=== PATIENT | male | born 1945 | race Caucasian/White ===

== ENCOUNTER → 2017-09-14 14:37 | Outpatient (POV) | payer MEDICARE, SELFPAY | DX: Z00.00 Encounter for general adult medical examination without abnormal findings (principal) ==

== ENCOUNTER → 2017-09-27 10:02 | Outpatient (CLI) | payer MEDICARE, SELFPAY ==
[2017-09-27 11:13] LABS: Alanine Aminotransferase 40 U/L (12-78); Albumin Level 3.8 gm/dL (3.4-5.0); Albumin/Globulin Ratio 1.1 (1.1-1.8); Alkaline Phosphatase 82 U/L (46-116); Anion Gap 12.5 mEq/L (5-15); Aspartate Amino Transferase 20 U/L (15-37); Bilirubin,Total 0.6 mg/dL (0.2-1.0); Blood Urea Nitrogen 15 mg/dL (7-18); Calcium 8.6 mg/dL (8.5-10.1); Carbon Dioxide 29 mmol/L (21.0-32.0); Chloride 105 mmol/L (98-107); Chol/HDL Ratio 3.3 (1-3.5); Cholesterol 200 mg/dL (140-200); Creatinine,Serum 0.92 mg/dL (0.70-1.30); Estimated Glomerular Filt Rate 81 ml/min (>60); GFR (African American) 98 ML/MIN (>60); Globulin 3.6 gm/dl (1.3-3.2); Glucose 117 mg/dL (74-106); HDL Cholesterol 61 mg/dL (27-67); LDL Cholesterol 124 mg/dL (0-130); Potassium 4.5 mmoL/L (3.5-5.1); Prostate Specific Ag Screen 4.8 ng/mL (0.0-4.0); Sodium 142 mmol/L (136-145); Thyroid Stimulating Hormone 0.84 uIU/ml (0.358-3.740); Total Protein,Serum 7.4 gm/dL (6.4-8.2); Triglycerides 73 mg/dL (30-200); VLDL Cholesterol 15 mg/dL (0-40)
[2017-09-27 11:17] LABS: Hemoglobin A1C 5.4 % (0.0-7.0)
[2017-09-28 12:26] LABS: Vitamin B12 1173 pg/mL (232-1245)
[2017-09-30 11:42] LABS: Vitamin D 25 Hydroxy 32.4 ng/mL (30.0-100.0)
== END ==
PROVIDERS: Visit Provider Internal Medicine Adolescent Medicine
DX: Z12.5 Encounter for screening for malignant neoplasm of prostate (principal); R97.20 Elevated prostate specific antigen [PSA]; E78.5 Hyperlipidemia, unspecified; G60.9 Hereditary and idiopathic neuropathy, unspecified; R73.01 Impaired fasting glucose
CPT/HCPCS: 36415; 80053; 80061; 82607; 82652; 83036; 84443; G0103

== ENCOUNTER → 2017-12-07 10:14 | Outpatient (CLI) | payer MEDICARE, SELFPAY ==
[2017-12-07 12:57] LABS: Alanine Aminotransferase 48 U/L (12-78); Albumin Level 4.1 gm/dL (3.4-5.0); Albumin/Globulin Ratio 1.1 (1.1-1.8); Alkaline Phosphatase 93 U/L (46-116); Aspartate Amino Transferase 23 U/L (15-37); Bilirubin,Total 0.8 mg/dL (0.2-1.0); Blood Urea Nitrogen 15 mg/dL (7-18); Calcium 8.7 mg/dL (8.5-10.1); Carbon Dioxide 29 mmol/L (21.0-32.0); Chloride 106 mmol/L (98-107); Cholesterol 147 mg/dL (140-200); Creatinine,Serum 0.86 mg/dL (0.70-1.30); Estimated Glomerular Filt Rate 87 ml/min (>60); GFR (African American) 106 ML/MIN (>60); Globulin 3.7 gm/dl (1.3-3.2); Glucose 107 mg/dL (74-106); HDL Cholesterol 75 mg/dL (27-67); LDL Cholesterol 62 mg/dL (0-130); Sodium 142 mmol/L (136-145); Total Protein,Serum 7.8 gm/dL (6.4-8.2); Triglycerides 51 mg/dL (30-200); VLDL Cholesterol 10 mg/dL (0-40)
== END ==
PROVIDERS: PCP Internal Medicine Adolescent Medicine; Visit Provider Internal Medicine Adolescent Medicine
DX: E78.5 Hyperlipidemia, unspecified (principal)
CPT/HCPCS: 36415; 80053; 80061

== ENCOUNTER → 2018-05-23 16:01 | Outpatient (POV) | payer MEDICARE, SELFPAY | PROVIDERS: Visit Provider Internal Medicine | DX: Z00.00 Encounter for general adult medical examination without abnormal findings (principal) ==

== ENCOUNTER → 2019-01-18 09:01 | Outpatient (CLI) | payer MEDICARE, SELFPAY ==
[2019-01-18 09:31] LABS: Basophils # 0.1 K/mm3 (0-0.2); Eosinophils # 0.4 K/mm3 (0.0-0.4); Hematocrit 44.1 % (42.0-52.0); Hemoglobin 14.6 g/dL (14.1-18.0); Lymphocytes # 2.7 K/mm3 (0.7-4.5); Lymphocytes % 47.3 % (10-50); Mean Corpuscular HGB Conc 33.2 g/dL (31.8-35.4); Mean Corpuscular Hemoglobin 31.8 pg (27.0-31.2); Mean Corpuscular Volume 95.9 fl (80-94); Mean Platelet Volume 7.2 fl (7.4-10.4); Monocytes # 0.4 K/mm3 (0.1-1.0); Monocytes % 7.6 % (1.7-9.3); Neutrophils # 2.2 K/mm3 (1.8-7.8); Platelet Count 278 K/mm3 (142-424); Red Cell Distribution Width 12.6 % (11.5-17.5); White Blood Count 5.7 K/mm3 (4.8-10.8)
[2019-01-18 11:47] LABS: Alanine Aminotransferase 31 U/L (12-78); Albumin/Globulin Ratio 1.1 (1.1-1.8); Alkaline Phosphatase 97 U/L (46-116); Anion Gap 16.6 mEq/L (5-15); Aspartate Amino Transferase 19 U/L (15-37); Bilirubin,Total 0.4 mg/dL (0.2-1.0); Blood Urea Nitrogen 12 mg/dL (7-18); Calcium 8.7 mg/dL (8.5-10.1); Carbon Dioxide 26 mmol/L (21.0-32.0); Chloride 106 mmol/L (98-107); Cholesterol 153 mg/dL (140-200); Creatinine,Serum 0.87 mg/dL (0.70-1.30); Estimated Glomerular Filt Rate 86 ml/min (>60); GFR (African American) 104 ML/MIN (>60); Globulin 3.7 gm/dl (1.3-3.2); Glucose 114 mg/dL (74-106); HDL Cholesterol 78 mg/dL (27-67); LDL Cholesterol 66 mg/dL (0-130); Potassium 4.6 mmoL/L (3.5-5.1); Prostate Specific Ag, Diagnost 4.46 ng/mL (0.0-4.0); Sodium 144 mmol/L (136-145); Total Protein,Serum 7.7 gm/dL (6.4-8.2); Triglycerides 45 mg/dL (30-200); VLDL Cholesterol 9 mg/dL (0-40)
--- NOTE | 2019-01-18 15:17 | CT_ITS ---
PROCEDURE: CT HEART W CALCIUM SCORE CLINICAL HISTORY: SCREENING COMPARISON: No exams were available for comparison TECHNIQUE: Axial images obtained with sagittal and coronal reformats. All CT scans at the facility use one or more dose reduction, viz: automated exposure control, ma/kV adjustment per patient size (including targeted exams where dose is matched to indication, i.e. head), or iterative reconstruction technique. FINDINGS: The coronary artery calcium score is 298 indicating moderate plaque burden with high cardiovascular disease risk. Incidental degenerative changes of the thoracic spine. There is a patchy area of increased density in the right lower lobe medially adjacent to prominent osteophyte may be due to an area of atelectasis infiltrate or fibrosis. IMPRESSION: 1. Moderate plaque burden with high cardiovascular disease risk. 2. Incidental findings as described above Dictated by: Sunny Lepe MD 01/20/2019 07:25 Electronically signed by Sunny Lepe MD in [facility] 01/20/2019 07:25
== END ==
PROVIDERS: Referring Provider Internal Medicine Cardiovascular Disease; Visit Provider Internal Medicine Adolescent Medicine
DX: Z13.6 Encounter for screening for cardiovascular disorders (principal); E78.5 Hyperlipidemia, unspecified; G20 Parkinson's disease; N40.1 Benign prostatic hyperplasia with lower urinary tract symptoms
CPT/HCPCS: 36415; 75571; 80053; 80061; 84153; 85025

== ENCOUNTER → 2019-01-22 14:11 | Outpatient (CLI) | payer MEDICARE, SELFPAY ==
--- NOTE | 2019-01-22 14:17 | MR_ITS ---
PROCEDURE: MR HEAD/BRAIN WO CON CLINICAL INDICATION: ANXIETY, PARKINSONS, TREMOR Tremor COMPARISON: No exams were available for comparison TECHNIQUE: Routine multiplanar multi echo sequences are performed without gadolinium enhancement. The FINDINGS: No midline shift, mass effect, intracranial hemorrhage, or hydrocephalus is evident. Scattered periventricular and subcortical T2 white matter hyperintensities are present consistent with ischemic gliotic change from microvascular disease. There is mild generalized atrophy. Slight increased T2 signal is present also in the serjio which may be due to skin katie gliotic change. No areas of restricted diffusion. The cerebellopontine angle, cerebellum, and brainstem are unremarkable. The pituitary, optic chiasm, corpus callosum, and craniocervical junction have an unremarkable appearance. No mastoid effusion or sinus air-fluid level. There is mild mucosal thickening of the left ethmoid sinus posteriorly. IMPRESSION: 1. No acute intracranial findings. 2. Atrophy with mild periventricular ischemic gliotic changes. Dictated by: Sunny Lepe MD 01/22/2019 16:37 Electronically signed by Sunny Lepe MD in [facility] 01/23/2019 12:20
== END ==
PROVIDERS: PCP Internal Medicine Adolescent Medicine; Visit Provider Psychiatry & Neurology Neurology
DX: F41.1 Generalized anxiety disorder (principal); F32.9 Major depressive disorder, single episode, unspecified; G20 Parkinson's disease; G25.0 Essential tremor
CPT/HCPCS: 70551

== ENCOUNTER → 2019-02-12 06:51 | Outpatient (CLI) | payer MEDICARE, SELFPAY ==
--- NOTE | 2019-02-12 | CA_ITS ---
APPROVED REPORT Exam: Pharmacologic Technologist: Halley Vargas Ht: 5 ft 11 in Wt: 180 lbs BSA: 2.02 m2 HR: 75 bpm BP: 160/81 mmHg Indications: Dyspnea, Abnormal CT calcium scoring test Medical History Medications: Lisinopril,,,,, Atorvastatin,,,,, Ranitidine,,,,, Citalopram,,,,, ClonAZEPAM,,,,, TAMSULOSIN,,,,, Mirtazapine,,,,, Levadopa,,,,, Stress Test Details Test: LEXISCAN HR Resting HR: 65 bpm Max Heart Rate (APMHR): 147 bpm Max HR Achieved: 99 bpm Target HR (85% APMHR): 124 bpm % of APMHR: 67 Recovery HR: 74 bpm BP Resting BP: 160.0/81.0 mmHg Max BP: 161.0/73.0 mmHg Recovery BP: 147.0/75.0 mmHg ECG Clinical Exercise duration: 04:00 min Highest Stage Achieved: Stress ECG Conclusion Resting ECG: Sinus rhythm - right bundle branch block Lexiscan portion completed. Symptoms: GI issue at peak infusion, resolved in recoviery. No chest pain or shortness of breath. Arrhythmias/Ectopy: Occasional PVC, occasional PAC. ST-T Changes: Less than 1.[address] depression Conclusion: Images to follow. Test Summary RECOVERY 05:00 . . 71 . 149/ 76 . . REST 01:48 . . 65 . 160/ 81 . . Stage 1 01:00 . . 94 . . . . Stage 2 01:00 . . 96 . 146/ 82 . . Stage 3 01:00 . . 96 . 154/ 82 . . Stage 4 01:00 . . 83 . 151/ 75 . Stop exercise at 04:00 RECOVERY 01:00 . . 81 . 148/ 74 . . RECOVERY 02:00 . . 75 . 148/ 74 . . RECOVERY 03:00 . . 83 . 161/ 73 . . RECOVERY 04:00 . . 76 . 149/ 76 . . RECOVERY 05:00 . . 71 . 149/ 76 . . RECOVERY 05:21 . . 74 . 147/ 75 . . Electronically signed by : Ivan Nieves, 02/12/2019 20:25:12
--- NOTE | 2019-02-12 06:53 | NM_ITS ---
APPROVED REPORT Exam: Nuclear Stress Test Indication: CAD, HTN, High cholesterol, Family history Patient Location: Outpatient Stress Tech: Halley Vargas NM Tech:Carol Zeng, ARRT, RT (R)(N) Ht: 5 ft 11 in Wt: 180 lbs HR: 75 bpm BP: 160/81 mmHg BSA: 2.02 m2 BMI: 25.1 History: CAD, HTN, High cholesterol, Family history Procedure: Patient received a 0.4 mg of intravenous Lexiscan, resting heart rate 75 bpm, resting blood pressure 160/81 mmHg, with Lexiscan maximum heart rate achived was 97 bpm which is Less than 85 % of the maximum predicted heart rate and blood pressure was 154/82 mmHg. With Lexiscan, patient denied any complaint of chest pain. Electrocardiogram Resting electrocardiogram showed sinus rhythm right bundle branch block, with Lexiscan there is less than 1.[address] segment depression noted from the baseline EKG. The EKG portion of the Lexiscan Myoview is nondiagnostic. Cardiac Stress and Resting SPECT Images: Cardiac Stress and Resting SPECT images were obtained using technetium 99m Myoview 30.3 mCi stress and 10.13 mCi at rest. Gated SPECT with analysis of segmental wall motion and calculation of the ejection fraction also done. Cardiac stress and resting SPECT images show a mild fixed defect in the inferior wall with normal contractility gated SPECT is likely secondary to soft tissue attenuation, no reversible ischemia seen. Computer derived ejection fraction is over 65% with no regional wall motion abnormality, right ventricle is mildly enlarged with normal contractility. Conclusion: 1. The EKG portion of the Lexiscan Myoview is nondiagnostic. 2. No scintigraphic evidence of reversible ischemia seen, a fixed defect in the inferior wall is likely secondary to soft tissue attenuation, computer derived ejection fraction is over 65% with no regional wall motion abnormality, right ventricle is mildly enlarged with normal contractility. Electronically signed by : Ivan Nieves, 02/12/2019 20:27:46
--- NOTE | 2019-02-12 07:19 | HMH.ITSHM ---
Current Home Medications as stated by this patient Tommie Xie or enrollment representative. []ATORVASTATIN CITALOPRAM CLONAZAPAM LISINOPRIL MIRTAZAPINE RANITIDINE LEVADOPA TAMSULOSIN
== END ==
PROVIDERS: PCP Internal Medicine Adolescent Medicine; Visit Provider Internal Medicine Adolescent Medicine
DX: R06.09 Other forms of dyspnea (principal); R93.1 Abnormal findings on diagnostic imaging of heart and coronary circulation
CPT/HCPCS: 78452; 93017; A9502; J2785

== ENCOUNTER → 2020-01-18 10:19 | Outpatient (CLI) | payer MEDICARE, SELFPAY ==
[2020-01-18 12:46] LABS: Alanine Aminotransferase 6 U/L (12-78); Albumin Level 4.8 g/dl (3.5-5.0); Albumin/Globulin Ratio 1.5 (1.1-1.8); Alkaline Phosphatase 85 U/L (38-126); Anion Gap 15.2 mEq/L (5-15); Aspartate Amino Transferase 30 U/L (17-59); Bilirubin,Total 0.5 mg/dl (0.2-1.3); Blood Urea Nitrogen 18 mg/dl (9-20); Calcium 9.6 mg/dl (8.4-10.2); Carbon Dioxide 28 mmol/L (22.0-30.0); Chloride 106 mmol/L (98-107); Chol/HDL Ratio 2.1 (1-3.5); Cholesterol 182 mg/dl (140-200); Estimated Glomerular Filt Rate 82 ml/min (>60); GFR (African American) 100 ML/MIN (>60); Globulin 3.2 g/dL (1.3-3.2); Glucose 114 mg/dl (74-100); HDL Cholesterol 85 mg/dl (40-60); Potassium 5.2 mmoL/L (3.5-5.1); Sodium 144 mmol/L (136-145); Triglycerides 55 mg/dl (30-150); VLDL Cholesterol 11 mg/dL (0-40)
[2020-01-18 12:58] LABS: Direct LDL Cholesterol 75.68 mg/dL (100-129)
[2020-01-18 13:19] LABS: Prostate Specific Ag Screen 3.5 ng/ml (0.0-4.0)
== END ==
PROVIDERS: Visit Provider Nurse Practitioner Family
DX: E78.5 Hyperlipidemia, unspecified (principal); N40.1 Benign prostatic hyperplasia with lower urinary tract symptoms; Z12.5 Encounter for screening for malignant neoplasm of prostate; Z68.23 Body mass index [BMI] 23.0-23.9, adult
CPT/HCPCS: 36415; 80053; 80061; G0103

== ENCOUNTER → 2020-03-01 10:59 | Outpatient (CLI) | payer MEDICARE, SELFPAY ==
[2020-03-01 12:44] LABS: Coronavirus 19 IgG Antibody Positive (Negative); Coronavirus 19 IgM Antibody Negative (Negative)
== END ==
PROVIDERS: Visit Provider Internal Medicine Gastroenterology
DX: Z01.818 Encounter for other preprocedural examination (principal); Z12.11 Encounter for screening for malignant neoplasm of colon; R19.7 Diarrhea, unspecified
CPT/HCPCS: 36415; 86328

== ENCOUNTER 2020-03-03 07:07 | Day surgery (SDC) | payer MEDICARE, SELFPAY ==
[2020-02-26 10:28] VITALS: BMI 24.4
[2020-03-03 07:21] VITALS: BP 141/81; PULSE 61; RESP 18; TEMP 36.3; O2SAT 98
[2020-03-03 08:04] VITALS: O2SAT 98
--- NOTE | 2020-03-03 08:05 | P.PCN_ITS ---
[facility] Procedure Note Procedure Note:: Colonoscopy Procedure Report: Colonoscopy Endoscopist: Bill Meyers II, MD Referring physician: Korina RAMIREZ Date of Procedure: March 03, 2020 Equipment: Olympus 180 variable stiffness pediatric colonoscope Sedation: MAC sedation Indication: Mr. Xie is a 74-year-old gentleman who is here for follow-up screening/surveillance colonoscopy. He did have a colonoscopy in 2013 and had a couple of adenomatous polyps (Dr. Jose L Chavez) removed. He reports no abdominal pain, weight loss, change in his bowel habits or rectal bleeding. He reports no family history of colon cancer. Procedure: Prior to the procedure, a history and physical exam was performed, and patient's medications and allergies were reviewed. The risks, benefits and alternatives of the sedation and procedure were discussed with the patient. All questions were answered and informed consent was obtained. The patient was brought to the procedure room. Patient identification and proposed procedure were verified by the physician and the nurse. The patient was placed in a left lateral decubitus position and the scope was passed under direct vision. Throughout the procedure, the patient's blood pressure, pulse, and oxygen saturations were monitored continuously. The colonoscopy was accomplished without difficulty. The patient tolerated the procedure well. Findings: On digital rectal examination there was normal rectal tone. There were no external hemorrhoids. The colonoscope was introduced through the anal canal to the rectum and advanced to the cecum. The ileocecal valve and appendiceal orifice were identified. The scope was advanced a short distance into the ileum which appeared grossly normal. The scope was then withdrawn into the colon. The cecum, ascending and transverse colon and mucosa were grossly normal. There were scattered diverticuli throughout the colon but more predominantly in the descending and sigmoid colon (LEFT colon). The rectum itself was normal. Upon retroflexion within the rectum there were grade 1-2 internal hemorrhoids. The preparation was excellent throughout with [place] Preparation Score of 9. The cecal time was 12 minutes. Impression: 1. Pandiverticulosis 2. Grade 1-2 internal hemorrhoids Plan: The patient will not require screening/surveillance colonoscopy again for 10 years by ACS guidelines. I would encourage fiber supplementation on a long-term daily maintenance basis.
--- NOTE | 2020-03-03 08:15 | P.PN_ITS ---
[facility] Anesthesia Checklist - Patient Identification Patient Identification: Arm Band - Structural Data Admitted From: Home Planned Operative Procedure/s: colonoscopy Consent for Planned Operative Procedure(s) Verified: Yes Verified Documents: Surgical Consent, History and Physical - NPO Status Verified Time NPO: 00:00 - Additional verifications Anesthesia Reactions: No - Airway Assessment C-Spine Mobility Assessed: Yes (mp2) TMJ Mobility Assessed: Yes Dentition: Good Dentition - Neurological Assessment Level of Consciousness: Awake, Alert - Anesthesia Plan Anesthesia Risk discussed: Yes Anesthesia Plan: Verified ASA Class: II Anesthesia Type: MAC [facility] History I have reviewed the patient's past medical history: Yes Medical History: Reports:: Cancer (skin), Hyperlipidemia, Hypertension Denies:: Diabetes Mellitus Type 1, Diabetes Mellitus Type 2, Internal Pacemaker, MRSA, Seizures *Have you ever received a pneumonia vaccine?: Yes *Have you received a flu vaccine this season?: Yes Anesthesia experience/problems:: nac Other Surgeries: Yes: Hernia Repair, Other. No: Pacemaker Amputation: No Fractures: Yes (L ankle ORIF - plate) - *Social History Last grade of school completed: Advanced degree Smoking Status: Never smoker Alcohol Intake: current Alcohol Intake Frequency:: 3 or more drinks per day Substance Use Type: denies use *Occupational Status:: retired Housing: house Household Members: spouse *Travel in the last 8 weeks: None Family Hx:: No significant family history
[2020-03-03 08:25] VITALS: BP 101/71; PULSE 59; RESP 12; TEMP 36.3; O2SAT 94
[2020-03-03 08:35] VITALS: BP 112/65; PULSE 55; RESP 12; O2SAT 95
[2020-03-03 08:45] VITALS: BP 119/75; PULSE 64; RESP 16; O2SAT 98
[2020-03-03 08:55] VITALS: BP 127/76; PULSE 55; RESP 16; TEMP 36.3; O2SAT 98
== END 2020-03-03 08:57 | disposition home or self-care (01) ==
LOC: OUTP 07:08
PROVIDERS: PCP Internal Medicine Adolescent Medicine; Visit Provider Internal Medicine Gastroenterology
PROC: 0DJD8ZZ Inspection of Lower Intestinal Tract, Via Natural or Artificial Opening Endoscopic (ICD-10-PCS; CPT 45378; principal; 2020-03-03 08:00)
DX: Z12.11 Encounter for screening for malignant neoplasm of colon (principal); K57.30 Diverticulosis of large intestine without perforation or abscess without bleeding; K64.0 First degree hemorrhoids; Z86.010 Personal history of colon polyps; I10 Essential (primary) hypertension; E78.5 Hyperlipidemia, unspecified; G47.33 Obstructive sleep apnea (adult) (pediatric); F41.9 Anxiety disorder, unspecified; F32.9 Major depressive disorder, single episode, unspecified
CPT/HCPCS: G0105

== ENCOUNTER → 2020-07-31 11:03 | Outpatient (CLI) | payer MEDICARE, SELFPAY ==
--- NOTE | 2020-07-31 11:08 | XR_ITS ---
PROCEDURE: XR KNEE LT 4V CLINICAL INDICATION: Left knee pain COMPARISON: CR [id number] [id number] OR 5 [id number] from 11/11/2015 FINDINGS: No fracture or dislocation. No lytic or blastic change. There is normal mineralization. There are mild osteoarthritic changes of the medial compartment and patellofemoral joint. Other findings:Nonspecific vascular calcifications. IMPRESSION: Mild Dictated by: Sunny Lepe MD 07/31/2020 14:56 Sunny Lepe MD in [place] 07/31/2020 14:56
== END ==
PROVIDERS: PCP Internal Medicine Adolescent Medicine; Visit Provider Orthopaedic Surgery
DX: M25.562 Pain in left knee (principal)
CPT/HCPCS: 73564

== ENCOUNTER → 2020-09-05 11:05 | Outpatient (CLI) | payer MEDICARE, SELFPAY ==
--- NOTE | 2020-09-05 11:09 | XR_ITS ---
PROCEDURE: XR HIP LT 2-3V W/PELVIS CLINICAL INDICATION: LT hip pain COMPARISON: No exams were available for comparison FINDINGS: There are mild mild to moderate osteoarthritic changes of the left hip. No fracture or dislocation. No lytic or blastic change. There is subchondral cyst in the acetabular roof laterally. AP view of the pelvis also shows osteoarthritic change of the right hip. IMPRESSION: [id number] osteoarthritic change of the left hip Dictated by: Sunny Lepe MD 09/05/2020 11:29 Sunny Lepe MD in [facility] 09/05/2020 11:29
== END ==
PROVIDERS: PCP Internal Medicine Adolescent Medicine; Visit Provider Orthopaedic Surgery
DX: M17.10 Unilateral primary osteoarthritis, unspecified knee (principal); M25.559 Pain in unspecified hip
CPT/HCPCS: 73502

== ENCOUNTER → 2020-09-25 13:29 | Outpatient (CLI) | payer MEDICARE, SELFPAY ==
--- NOTE | 2020-09-25 13:34 | IR_ITS ---
PROCEDURE: IR FLUORO GUIDED NEEDLE PLACE CLINICAL INDICATION: LT hip injection COMPARISON: No exams were available for comparison FINDINGS: Fluoroscopy time: 37 seconds. Four images are submitted of the left hip showing intra-articular injection from the lateral approach with the injection needle overlying the superior lateral aspect of the femoral head with contrast noted within the hip joint capsule. Minimal amount of contrast extravasation into the soft tissues IMPRESSION: Status post fluoroscopic guided intra-articular injection of the left hip Dictated by: Sunny Lepe MD 09/25/2020 16:04 Sunny Lepe MD in [place] 09/25/2020 16:04
--- NOTE | 2020-09-25 15:33 | HMH.PROC ---
[facility] Procedure Note Procedure Note:: Date of Procedure:09/25/2020 Pre-procedure diagnosis: Osteoarthritis, left hip Post-procedure diagnosis: Same Procedure: Intra-articular corticosteroid injection, left hip Performed by: Hemant Nichole MD Senior Mainframe Developer/s: none Anesthesia: local; 10 cc 1% lidocaine w/o epinephrine Estimated Blood Loss: none Procedure Note: Intra-articular left hip injection: The patient presented to the radiology department and changed into a gown. Consent was reviewed and signed by both myself and the patient.? All questions were answered. The patient was placed supine on the fluoroscopy table and the left hip exposed. The lateral hip and proximal thigh were prepped with multiple chlorhexidine sticks. Timeout was performed. Next, with the help of the wireless cellular technician, the fluoro machine was brought in over the patient?s hip and a picture taken to confirm adequate visualization of the joint. I donned a pair of sterile surgical gloves; the remainder of the procedure was performed in a sterile fashion. A spinal needle was held over the lateral aspect of the hip about the tip of the greater trochanter to approximate my desired entry point on the skin. Once this was established, a 25 G needle was used to infiltrate injection site and estimated needle track with total 10 cc 1% lidocaine w/o epinephrine. Once the injection site was anesthetized, a 22-gauge spinal needle was advanced through deeper tissue towards the hip joint.? Using fluoro, it was confirmed that the needle was advanced until the tip was in the hip joint. The stylus was removed from the spinal needle and 2cc of iodinated contrast solution was injected through the spinal needle. Fluoro was taken again, and the dye confirmed intra-capsular placement of the spinal needle, indicating a successful intraarticular injection. The syringe with contrast was removed, keeping the spinal needle in place, and a combination of 40 mg of Kenalog with 4 cc 1% lidocaine w/o epinephrine was injected through the needle into the hip joint. A final fluoro picture was taken, confirming successful intraarticular injection. The spinal needle was removed from the hip. Sterile dressings were applied over the needle puncture site. Patient tolerated the procedure well and there were no immediate complications. Patient reported good pain relief within a few minutes after the the injection.? Specimens: none Condition/Disposition: good / home Complications: none
== END ==
PROVIDERS: PCP Internal Medicine Adolescent Medicine; Visit Provider Orthopaedic Surgery
DX: M16.12 Unilateral primary osteoarthritis, left hip (principal)
CPT/HCPCS: 20610; 77002; Q9967

== ENCOUNTER → 2021-01-12 09:22 | Outpatient (CLI) | payer MEDICARE, SELFPAY ==
[2021-01-12 09:51] LABS: Basophils # 0.1 K/mm3 (0-0.2); Basophils % 0.8 % (0.1-2.0); Eosinophils # 0.4 K/mm3 (0.0-0.4); Eosinophils % 5.1 % (0.1-12.0); Hematocrit 45.5 % (42.0-52.0); Hemoglobin 14.7 g/dL (14.1-18.0); Lymphocytes # 2.7 K/mm3 (0.7-4.5); Lymphocytes % 38.6 % (10-50); Mean Corpuscular HGB Conc 32.4 g/dL (31.8-35.4); Mean Corpuscular Hemoglobin 31.5 pg (27.0-31.2); Mean Corpuscular Volume 97.3 fl (80-94); Mean Platelet Volume 6.8 fl (7.4-10.4); Monocytes # 0.4 K/mm3 (0.1-1.0); Monocytes % 5.8 % (1.7-9.3); Neutrophils # 3.4 K/mm3 (1.8-7.8); Neutrophils % 49.6 % (37.0-80.0); Platelet Count 292 K/mm3 (142-424); Red Blood Count 4.68 M/mm3 (4.60-6.20); Red Cell Distribution Width 12.2 % (11.5-17.5); White Blood Count 6.9 K/mm3 (4.8-10.8)
[2021-01-12 10:46] LABS: Alanine Aminotransferase 23 U/L (12-78); Albumin Level 4.5 g/dl (3.5-5.0); Albumin/Globulin Ratio 1.6 (1.1-1.8); Alkaline Phosphatase 77 U/L (38-126); Anion Gap 13.1 mEq/L (5-15); Aspartate Amino Transferase 26 U/L (17-59); Bilirubin,Total 0.5 mg/dl (0.2-1.3); Blood Urea Nitrogen 14 mg/dl (9-20); Calcium 9.4 mg/dl (8.4-10.2); Carbon Dioxide 29 mmol/L (22.0-30.0); Chloride 104 mmol/L (98-107); Chol/HDL Ratio 2.2 (1-3.5); Cholesterol 145 mg/dl (140-200); Estimated Glomerular Filt Rate 94 ml/min (>60); GFR (African American) 114 ML/MIN (>60); Globulin 2.9 g/dL (1.3-3.2); Glucose 108 mg/dl (74-100); HDL Cholesterol 66 mg/dl (40-60); Potassium 5.1 mmoL/L (3.5-5.1); Sodium 141 mmol/L (136-145); Total Protein,Serum 7.4 g/dl (6.3-8.2); Triglycerides 54 mg/dl (30-150); VLDL Cholesterol 11 mg/dL (0-40)
[2021-01-12 10:58] LABS: Direct LDL Cholesterol 55.23 mg/dL (100-129)
[2021-01-12 11:18] LABS: Prostate Specific Ag Screen 3.6 ng/ml (0.0-4.0)
== END ==
PROVIDERS: Visit Provider Internal Medicine Adolescent Medicine
DX: G20 Parkinson's disease (principal); E78.5 Hyperlipidemia, unspecified; N40.1 Benign prostatic hyperplasia with lower urinary tract symptoms; Z12.5 Encounter for screening for malignant neoplasm of prostate
CPT/HCPCS: 36415; 80053; 80061; 85025; G0103

== ENCOUNTER → 2021-03-19 09:56 | Outpatient (CLI) | payer MEDICARE, SELFPAY | PROVIDERS: PCP Radiology Diagnostic Radiology; Visit Provider Nurse Practitioner | DX: Z20.822 Contact with and (suspected) exposure to COVID-19 (principal) | CPT/HCPCS: C9803; U0003; U0005 ==

== ENCOUNTER 2021-05-27 10:00 | Outpatient (RCR) | payer MEDICARE, SELFPAY | END 2021-05-27 10:05 | disposition home or self-care (01) | LOC: PT 10:00 | PROVIDERS: PCP Internal Medicine Adolescent Medicine; Visit Provider Orthopaedic Surgery | DX: M25.562 Pain in left knee (principal); Z96.652 Presence of left artificial knee joint | CPT/HCPCS: 97010; 97014; 97016; 97110; 97140; 97163; 97164; 97530; G0283 ==

== ENCOUNTER → 2021-11-20 08:46 | Outpatient (CLI) | payer MEDICARE, SELFPAY ==
[2021-11-20 09:21] LABS: Basophils # 0.2 K/mm3 (0-0.2); Basophils % 1.8 % (0.1-2.0); Eosinophils # 0.3 K/mm3 (0.0-0.4); Eosinophils % 2.5 % (0.1-12.0); Hematocrit 43.5 % (42.0-52.0); Hemoglobin 13.5 g/dL (14.1-18.0); Lymphocytes # 2.6 K/mm3 (0.7-4.5); Lymphocytes % 24.9 % (10-50); Mean Corpuscular Hemoglobin 30.8 pg (27.0-31.2); Mean Corpuscular Volume 99.3 fl (80-94); Mean Platelet Volume 7.5 fl (7.4-10.4); Monocytes # 0.6 K/mm3 (0.1-1.0); Monocytes % 5.9 % (1.7-9.3); Neutrophils # 6.8 K/mm3 (1.8-7.8); Neutrophils % 64.9 % (37.0-80.0); Platelet Count 307 K/mm3 (142-424); Red Blood Count 4.38 M/mm3 (4.60-6.20); Red Cell Distribution Width 13.2 % (11.5-17.5); White Blood Count 10.4 K/mm3 (4.8-10.8)
[2021-11-20 11:14] LABS: Alanine Aminotransferase 15 U/L (12-78); Albumin Level 4.2 g/dl (3.5-5.0); Albumin/Globulin Ratio 1.4 (1.1-1.8); Alkaline Phosphatase 107 U/L (38-126); Anion Gap 11.9 mEq/L (5-15); Aspartate Amino Transferase 21 U/L (17-59); Bilirubin,Total 0.9 mg/dl (0.2-1.3); Blood Urea Nitrogen 11 mg/dl (9-20); Calcium 9.1 mg/dl (8.4-10.2); Carbon Dioxide 26 mmol/L (22.0-30.0); Chloride 105 mmol/L (98-107); Chol/HDL Ratio 2.1 (1-3.5); Cholesterol 131 mg/dl (140-200); Estimated Glomerular Filt Rate 82 ml/min (>60); GFR (African American) 99 ML/MIN (>60); Glucose 109 mg/dl (74-100); HDL Cholesterol 61 mg/dl (40-60); Potassium 4.9 mmoL/L (3.5-5.1); Sodium 138 mmol/L (136-145); Total Protein,Serum 7.2 g/dl (6.3-8.2); Triglycerides 69 mg/dl (30-150); VLDL Cholesterol 14 mg/dL (0-40)
[2021-11-20 11:44] LABS: Prostate Specific Ag Screen 3.9 ng/ml (0.0-4.0)
[2021-11-26 08:59] LABS: Direct LDL Cholesterol 50 mg/dL (100-129)
== END ==
PROVIDERS: PCP Internal Medicine Adolescent Medicine; Visit Provider Internal Medicine Adolescent Medicine
DX: G20 Parkinson's disease (principal); E78.5 Hyperlipidemia, unspecified; N40.1 Benign prostatic hyperplasia with lower urinary tract symptoms; Z12.5 Encounter for screening for malignant neoplasm of prostate
CPT/HCPCS: 36415; 80053; 80061; 85025; G0103

== ENCOUNTER → 2022-03-08 11:50 | Outpatient (CLI) | payer MEDICARE, SELFPAY ==
--- NOTE | 2022-03-08 11:56 | XR_ITS ---
FINAL REPORT CLINICAL HISTORY: PLEURITIC CHEST PAIN left side, x 1 week FINDINGS: 2 views of the chest were obtained . The heart is normal in size. The mediastinum is within normal limits. There are left mid lung opacities worrisome for pneumonia. However, mass not entirely excluded. There is no pneumothorax. Osseous structures are unremarkable. IMPRESSION: Left mid lung opacities worrisome for pneumonia. Mass not excluded. Recommend follow-up x-ray or CT for further evaluation. Reviewed, Interpreted and Dictated by Jean-Claude Marshall III, MD Transcribed by Maddie Lazaro Authenticated and . [facility]
== END ==
PROVIDERS: PCP Internal Medicine Adolescent Medicine; Visit Provider Internal Medicine Adolescent Medicine
DX: R07.81 Pleurodynia (principal)
CPT/HCPCS: 71046

== ENCOUNTER 2024-02-17 10:00 | Outpatient (RCR) | payer MEDICARE, SELFPAY ==
--- NOTE | 2023-11-22 10:35 | HMH.PTOPEV ---
PT Outpatient Evaluation Rehab PT Outpatient Evaluation Start: 11/22/23 10:24 Freq: Status: Active Protocol: Document 11/22/23 10:25 KIMANI (Rec: 11/22/23 10:35 KIMANI [id number]) E-signed By Antonio Powers, PT Outpatient Therapy Subjective History Subjective History Pt reports insidious onset mechanical LBP beginning ~6 months ago. Pt reports 'it correlates to when I started gardening this time.' Pt reports right and left sided intermittent LBP around PSIS's , exacerbated w/lifting bending, improved w/rest. Pt reports previous imaging studies have revealed 'some arthritic changes in low back. ' PMH: Parkinson's New diagnosis of cancer in past 12 No months? Chief Complaint Pain Symptom Type Ache,Dull Symptoms Relieved By Rest/Positioning Symptoms Aggravated By Bending/Stooping,Physical Activity,Lifting Prior Functional Limitations Lifting,Housework,Recreation Activity,Bending/Stooping Current Functional Limitations Lifting,Housework,Recreation Activity,Bending/Stooping Symptom Description Intermittent Level of pain today (0-10) 1 Pain scale - at its best (0-10) 0 Pain scale - at its worst (0-10) 7 Lumbopelvic Eval Posture Thoracic Spine Posture Standing Position Neutral Lumbar Spine Posture Standing Position Flattened Assistive device Assistive Devices None / NA Gait Observation General Gait Pattern Observation Shuffling Step Palapation tenderness bilateral lumbar spinal tenderness Yes: 2/4 paraspinal tenderness Yes: 2-3/4 buttock tenderness Yes: 1-2/4 Lumbar/Sacral Palpation Findings Tenderness,Muscle Guarding Accessory Movement L-spine Vertebrae Accessory Movements [employer] [place] that Elicit Symptoms L3 bilateral L4 bilateral Range of Motion Lumbar Spine Active Flexion Range of 0-65 Motion (degrees) Lumbar Spine Active Extension Range of 0-20 Motion (degrees) Left Lumbar Spine Lateral Flexion Active 0-15 Range of Motion (degrees) Right Lumbar Spine Lateral Flexion 0-15 Active Range of Motion (degrees) Lumbar Spine ROM Limitations Soft Tissue Tightness,Pain Manual Muscle Test Bilateral Knee Extension Strength Grade 5 Normal Knee Flexion Strength Grade 5 Normal Hip Flexion Strength Grade 5 Normal Hip Abduction Strength Grade 4 Good Hip Adduction Strength Grade 5 Normal Hip External Rotation Strength Grade 4 Good Hip Internal Rotation Strength Grade 4 Good Extensor Hallucis Longus Strength Grade 5 Normal Ankle Dorsiflexion Strength Grade 5 Normal Gastronemius/Soleus Strength Grade 5 Normal Special Tests Hip Rob Test Negative Left,Negative Right Hip Piriformis Test Negative Left,Negative Right Sciatic Nerve Tension Test Negative Left,Negative Right Oswestry Index Section 1 Pain Intensity The pain comes and goes and is severe Section 2 Personal Care (Washing,Dresing) my way of washing or dressing even though it causes some pain Section 3 Lifting I can lift heavy weights, but it gives me extra pain Section 4 Walking I have some pain when walking but it does not increase with distance Section 5 Sitting I can sit in any chair for as long as I like Section 6 Standing I cannot stand more than 1/2 hour without increasing pain Section 7 Sleeping I get no pain in bed Section 8 Social Life My social life is normal but increases the degree of pain Section 9 Traveling I get some pain when traveling , but none of my usual forms of travel m Section 10 Changing Degreee of Pain My pain is neither getting better or worse Score and Risk Level Oswestry Sc 15 Oswestry Risk Level Moderate Disability Outpatient Therapy Assessment Impairments Problems/Impairmments Palpation Tenderness,Impaired Range of Motion,Impaired Strength,Impaired Lifting, Impaired Household Care, Impaired Bending,Impaired Recreational Activities, Subjective C/O Pain,Impaired Self Care/Self Management Prognosis Rehab Potential Good Clinical Impression Consistent with Diagnosis Yes Short Term Goals Number of Weeks 4 Decreased Palpation Tenderness Yes: 1-2/4 lumbar mm Increase Range of Motion Yes: 75% OF WFL LUMBAR AROM Increase Strength Yes: 4+/5 B/L LE'S Restore Ability to Lift Objects to Waist Yes: 20# Level Improve Ability For Household Care Yes: 30MIN Return to Recreational Activities Yes: 30MIN GARDENING Decrease Subjective C/O Pain Yes: 3-4/10 W/ABOVE ACTIVITIES Patient to be 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 Number of Weeks 6-8 Decreased Palpation Tenderness Yes: 0-1/4 LUMBAR MM Increase Range of Motion Yes: WFL LUMBAR AROM Increase Strength Yes: WFL B/L LE'S (5/5) Restore Ability to Lift Objects to Waist Yes: 30# Level Improve Ability For Household Care Yes: 60MIN Return to Recreational Activities Yes: 60MIN GARDENING Improve Oswestry Score Yes: 6-8 Decrease Subjective C/O Pain Yes: 0-2/10 W/ABOVE ACTIVITIES Patient to be Ind w/ Advanced HEP Yes Outpatient Therapy Plan of Care Treatment Plan May Include Therapeutic Exercise Including Home Yes Exercise Program Manual Therapy Techniques Yes Neuromuscular Re-education Yes Therapeutic Activities to Return to Yes Previous Functional/Work Level Gait Training Yes ADL/Self Care Education Yes Mechanical Traction Yes Dry Needling Yes Thermal Modalities Yes Electrical Stimulation Yes Ultrasound/Phonophoresis Yes Orthotics/Bracing/Splinting Yes Eval/Re-Eval Yes Frequency Times per week 2-3 Duration Number of Weeks 6-8 Addendums This patient is a candidate for social No or vocational rehab? Patient/Guardian verbally acknowledges Yes understanding of treatment program and consents to further treatment? Patient/Guardian verbally acknowledges Yes understanding of diagnosis, prognosis and goals for treatment? Eval Complexity PT Charges 39673 - Moderate Complexity Shoulder/Elbow Eval Shoulder Objective Measurements Elbow Objective Measurements PHYSICIAN CERTIFICATION: I certify the specified therapy services for Tommie Xie are required, authorized, and reviewed every 30 days.
--- NOTE | 2023-12-20 11:47 | HMH.RHREAS ---
Rehab Reassessment Rehab OP Re-assessment Start: 11/22/23 10:24 Freq: Status: Active Protocol: Document 12/20/23 10:57 KIMANI (Rec: 12/20/23 11:46 KIMANI [id number]) E-signed By Antonio Powers, PT Rehab Re-assessment Subjective Subjective Pt reports 3/10 LBP on VAS over the last couple day, 'I definitely feel better than I did from when we started.' Objective Objective Notes AROM: LUMBAR AROM FLX 0-75, EXT 0-25, B/L SB 0-20 MMT: B/L HIP FLX 4-4+/5, B/L HIP ER,IR 4-4+/5, B/L HIP ABD 4-4+/5 TTP: B/L LUMBAR PARASPINAL MM 0-03/31 Assessment Progress Assessment Progressing as Expected Assessment Notes Significant improvements in strength, TTP, and ROM Patient goals met STG'S 10/02 LTG'S 08/03 Goals Not Met STG'S 04/04, LTG'S 07/04 Plan Plan Pt to continue w/skilled P.T. to make further improvements in ROM, strength, and TTP to allow for optimal function Frequency of Therapy 1-2x/wk Duration of therapy 3-5wks Time and Billing Re-Eval Time 12 Re-Eval Billing Units 1 PHYSICIAN CERTIFICATION: I certify the specified therapy services for Tommie Xie are required, authorized, and reviewed every 30 days.
--- NOTE | 2024-01-19 11:30 | HMH.RHREAS ---
Rehab Reassessment Rehab OP Re-assessment Start: 11/22/23 10:24 Freq: Status: Active Protocol: Document 01/19/24 11:22 KIMANI (Rec: 01/19/24 11:29 [email or web address] [id number]) E-signed By Antonio Powers, PT Rehab Re-assessment Subjective Subjective Pt reports slight to moderate improvement in LBP since last reassessment despite 2 week absence from skilled P.T. d/t travel. Pt reports 3-4/10 LBP on VAS this am. Objective Objective Notes AROM: LUMBAR AROM FLX 0-80, EXT 0-25, B/L SB 0-20 MMT: B/L HIP FLX 4-4+/5, B/L HIP ER,IR 4-4+/5, B/L HIP ABD 4-4+/5 TTP: B/L LUMBAR PARASPINAL MM 0-03/31 Assessment Progress Assessment Slower Than Expected Assessment Notes Pt has experienced a slight plateau of objective measures since last reassessment, however, still possesses LTG and some STG functional goals that are still determined to be attainable w/improved frequency of skilled P.T. Patient goals met STG'S 10/02 LTG'S 08/03 Goals Not Met STG'S 04/04, LTG'S 07/04 Plan Plan Pt to continue w/skilled P.T. to make further improvements in ROM, strength, and TTP to allow for optimal function Frequency of Therapy 1-2x/wk Duration of therapy 3-5WKS Time and Billing Re-Eval Time 12 Re-Eval Billing Units 0 PHYSICIAN CERTIFICATION: I certify the specified therapy services for Tommie Xie are required, authorized, and reviewed every 30 days.
== END 2024-02-17 23:59 | disposition home or self-care (01) ==
LOC: PT 10:00
PROVIDERS: Visit Provider Internal Medicine Adolescent Medicine
DX: M54.50 Low back pain, unspecified (principal)
CPT/HCPCS: 97010; 97014; 97110; 97163; 97164; G0283

== ENCOUNTER 2024-05-16 15:27 | Outpatient (CLI) | payer MEDICARE, SELFPAY ==
--- NOTE | 2024-05-16 15:32 | XR_ITS ---
PROCEDURE INFORMATION: Exam: XR Lumbosacral Spine Exam date and time: 05/16/2024 3:50 PM Age: 78 years old Clinical indication: Other: RT leg pain TECHNIQUE: Imaging protocol: Radiologic exam of the lumbosacral spine. Views: 4 or 5 views. COMPARISON: CR XR LUMBAR SPINE MIN 4V 05/16/2024 3:50 PM FINDINGS: Bones/joints: Mild lumbar dextrocurvature. No pars interarticularis defects. Mild disc space narrowing at L3-L4. Mild disc space narrowing at L4-L5. Moderate disc space narrowing at L5-S1. Facet joints have moderate degenerative narrowing and sclerosis. Straightening of the lumbar spine. No acutely displaced fractures. No joint dislocation. Soft tissues: Unremarkable. IMPRESSION: 1. No acute skeletal pathology. 2. Dfsc-hh-fceagnrq degenerative changes.
--- NOTE | 2024-05-16 15:32 | XR_ITS ---
PROCEDURE INFORMATION: Exam: XR Bilateral Sacroiliac Joints Exam date and time: 05/16/2024 3:50 PM Age: 78 years old Clinical indication: Pain; Other: RT leg; Additional info: Pain in rt-leg TECHNIQUE: Imaging protocol: XR bilateral XR of the sacroiliac joints. Views: 3 or more views. COMPARISON: CR XR HIP RT 2-3V W/PELVIS 05/16/2024 3:50 PM FINDINGS: Bones/joints: Jnsm-go-fmsehpqs bilateral hip osteoarthritis. Mild osteoarthritis in the bilateral sacroiliac joints. No sequela of sacroiliitis. No acute fracture. Soft tissues: Normal. IMPRESSION: 1. Hwqu-co-fjxpjhrx bilateral hip osteoarthritis. 2. Mild osteoarthritis in the bilateral sacroiliac joints. No sequela of sacroiliitis.
--- NOTE | 2024-05-16 15:32 | XR_ITS ---
PROCEDURE INFORMATION: Exam: XR Right Hip Exam date and time: 05/16/2024 3:50 PM Age: 78 years old Clinical indication: Pain; Other: RT leg; Additional info: Pain RT hip TECHNIQUE: Imaging protocol: Radiologic exam of the right hip. Views: 2 or 3 views hip with pelvis when performed. COMPARISON: CR XR HIP RT 2-3V W/PELVIS 05/16/2024 3:50 PM FINDINGS: Bones/joints: Zrel-so-vktyqqbj bilateral hip osteoarthritis. Cam type morphology in the bilateral femoral heads. No acute fracture or dislocation. Soft tissues: Unremarkable. IMPRESSION: 1. Kqud-ik-nfyoyzft bilateral hip osteoarthritis. 2. No acute fracture or dislocation.
== END 2024-05-16 23:59 | disposition home or self-care (01) ==
LOC: RAD 15:29
PROVIDERS: PCP Internal Medicine Adolescent Medicine; Visit Provider Internal Medicine Adolescent Medicine
DX: M79.604 Pain in right leg (principal); M54.9 Dorsalgia, unspecified
CPT/HCPCS: 72110; 72202; 73502

== ENCOUNTER 2024-08-06 15:09 | Outpatient (CLI) | payer MEDICARE, SELFPAY ==
--- NOTE | 2024-08-06 15:12 | MR_ITS ---
PROCEDURE INFORMATION: Exam: MR Lumbar Spine Without Contrast Exam date and time: 08/06/2024 4:20 PM Age: 78 years old Clinical indication: Low back pain; Lower back pain with right leg pain. No known injury; Additional info: Lf knee and ankle plate*spinal stenosis TECHNIQUE: Imaging protocol: Magnetic resonance imaging of the lumbar spine without contrast. COMPARISON: CR XR LUMBAR SPINE MIN 4V 05/16/2024 3:50 PM FINDINGS: Bones/joints: Mild angulation of the lumbar spine is visualized. The lumbar vertebral bodies are normal in height. Mild retrolisthesis of L5 on S1. Within the S1 vertebral body, there is a 1.1 cm T1 hyperintense hemangioma. Spinal cord: The distal end of the conus medullaris ends at T12-L1, normal in position. Multilevel findings: Degenerative changes are noted diffusely within the lumbar spine, with a decrease in the T2 signal intensity of the discs, as well as disc bulge/osteophyte complexes. L1-L2: Disc bulging is visualized. There is no significant spinal canal stenosis or neural foraminal narrowing. L2-L3: Disc bulging is visualized, without significant spinal canal stenosis. There is no significant neural foraminal narrowing bilaterally. L3-L4: Disc bulging is visualized, with a small left-sided disc protrusion causing flattening of the left ventral thecal sac, without significant spinal canal stenosis. Narrowing of the left lateral recess is seen. Mild right neural foraminal narrowing is identified. There is no significant narrowing of the left neural foramen. L4-L5: Minimal effusions are noted within the facet joints. A broad-based disc bulge is seen causing flattening of ventral thecal sac without significant spinal canal stenosis. There is narrowing of the right lateral recess. Moderate to severe right neural foraminal narrowing identified, with a foraminal protrusion. There is no significant narrowing of the left neural foramen. L5-S1: Mild edema is seen within the bone marrow adjacent to the endplates, which is likely degenerative. A decrease in disc height is seen posteriorly. Bilateral facet arthropathy. The disc bulging with central protrusion are visualized causing a mild impression on the ventral thecal sac, without significant spinal canal stenosis. Moderate left and severe right neural foraminal narrowing identified. Soft tissues: No significant paraspinal swelling. IMPRESSION: 1. Degenerative changes are noted diffusely within the lumbar spine, as described above. 2. No significant spinal canal stenosis at any lumbar level. Disc protrusions are noted at L3-L4 and L5-S1. 3. Neural foraminal narrowing from L3-L4 through L5-S1. 4. S1 vertebral body hemangioma. 5. Mild retrolisthesis of L5 on S1. 6. Additional findings described above.
== END 2024-08-06 23:59 | disposition home or self-care (01) ==
LOC: RAD 15:09
PROVIDERS: PCP Internal Medicine Adolescent Medicine; Visit Provider Anesthesiology Pain Medicine
DX: M51.27 Other intervertebral disc displacement, lumbosacral region (principal); M48.061 Spinal stenosis, lumbar region without neurogenic claudication
CPT/HCPCS: 72148

== ENCOUNTER 2024-11-22 14:26 | Outpatient (CLI) | payer MEDICARE, SELFPAY ==
--- OUTSIDE RECORDS SUMMARY | 2024-10-15 10:30 | XMS_ITS | Encounter Summary ---
Author Organization [facility] Address [address] [place] [address] Care Team Providers Care Mold Preparer Name Role Phone Sanchez Agosto MD Primary Care Provider [phone] Dago Miller MD Unavailable Reason for Referral * Other Medical (Routine) - Closed Specialty Diagnoses / Procedures Referred By Contac t Referred To Contact Pain Medicine Diagnoses Spondylosis of lumbosacral region without myelopathy or radiculopathy Procedures Facet MBB - Lumbar Luciano Medina MD [address] [address] Phone: tel: fax: [facility] Interventional Pain Medicine [address] [place] [phone] Phone: tel: fax: Referral ID Status Reason Start Date Expiration Date Visits Re quested Visits Authorized [id number] Closed 10/15/2024 04/16/2026 1 1 Reason for Visit * Reason Comments Injections * Other Medical (Routine) - Closed Specialty Diagnoses / Procedures Referred By Contac t Referred To Contact Pain Medicine Diagnoses Spondylosis of lumbosacral region without myelopathy or radiculopathy Procedures Facet MBB - Lumbar Yessenia Hale, [employer] [address] [address] Phone: tel: fax: [facility] Interventional Pain Medicine [address] [place] [address] Phone: tel: fax: Referral ID Status Reason Start Date Expiration Date Visits Re quested Visits Authorized [id number] Closed 09/12/2024 03/14/2026 1 1 Encounter Details Date Type Department Care Team (Late st Contact Info) Description 10/15/2024 10:30 AM EDT Procedure Visit [facility] Interventional Pain Medicine [address] [place] [address] Luciano Medina MD [address] [facility] [address] [place] [address] Spondylosis of lumbosacral region without myelopathy or radiculopathy Social History Tobacco Use Types Packs/Day Years Used Date Smoking Tobacco: Former Cigarettes 0 09/24/1999 - 2002 Smokeless Tobacco: Never Tobacco Cessation:Counseling Given: Not Answered Alcohol Use Standard Drinks/Week Comments Yes 3 (1 standard drink = 0.6 oz pure alcohol) Alcoholic Drinks/day: Consumes alcohol occasionally PHQ-2 Answer Date Recorded Patient Health Questionnaire-2 Score 0 09/12/2024 Sex and Gender Information Value Date Recorded Sex Assigned at Not on file Legal Sex Male 7:48 PM EDT Gender Identity Not on file Sexual Orientation Not on file documented as of this encounter Last Filed Vital Signs Vital Sign Reading Time Taken Comments Blood Pressure 125/76 10/15/2024 11:05 AM EDT Pulse 73 10/15/2024 11:05 AM EDT Temperature 36.4 C (97.5 F) 10/15/2024 10:27 AM EDT Respiratory Rate 18 10/15/2024 11:05 AM EDT Oxygen Saturation 99% 10/15/2024 11:05 AM EDT Inhaled Oxygen Concentration - - Weight 79.4 kg (175 lb) 10/15/2024 10:27 AM EDT Height 180.3 cm (5' 11 ) 10/15/2024 10:27 AM EDT Body Mass Index 24.41 10/15/2024 10:27 AM EDT documented in this encounter Miscellaneous Notes * Clinician Note - Sherly Colvin RN - 10/15/2024 10:30 AM EDTAssociated Order(s): Interventional Pain Nurse Procedure Protocol Interventional Pain Nurse Procedure Protocol Documentation: Indications: Documentation supporting primary procedure completed by : Luciano Medina MD See the provider procedure note for performed procedure details and findings. Pre-Procedure Checklist: Currently taking anticoagulant(s)?: no Vulcanizer present?: yes Additional Pre-Procedure Comments: Right lum. FMBB Sunburn on left foot, healing according to pt. Time out called @ 1056 by emerald Procedure details: Procedure start time:: 10/15/2024 10:59 AM Procedure end time:: 10/15/2024 11:03 AM Guidance used (if applicable): fluoro Total amount of contrast dye (mGy): 2.05 Fluoro time: 19.1 seconds Moderate conscious sedation used?: no Post-procedure details: Orientation at discharge?: Normal to time, normal to place, normal to person, normal to situation and completely oriented Mood and Affect normal?: yes Discharged to: home Mode of exit: Walked (@ 1132 am) Attendance: Constant attendance by certified staff until patient recovered Recovery: Patient returned to pre-procedure baseline Estimated blood loss (see I/O flowsheets): no Specimens recovered: None Patient is stable for discharge or admission: yes Procedure completion: Tolerated well, no immediate complications * Progress Notes - Luciano Medina MD - 10/15/2024 10:30 AM EDTAssociated Order(s): Facet MBB - Lumbar Pre-Procedure Diagnose(s): Spondylosis of lumbosacral region without myelopathy or radiculopathy Post-Procedure Diagnose(s): Spondylosis of lumbosacral region without myelopathy or radiculopathy Patient ID: Tommie Xie is a 79 y.o. male. Encounter Diagnosis Name Primary? Spondylosis of lumbosacral region without myelopathy or radiculopathy Facet MBB - Lumbar Performed by: Luciano Medina MD Authorized by: Geoffrey, Yessenia R, [employer] Procedure(s): A right L4-5 and L5-S1 Lumbar medial branch block- diagnostic #1 # Levels: 2 Pre-procedure: This patient was seen earlier for a comprehensive evaluation of their painful condition. After discussing treatment options, the patient elected to proceed with a Facet MBB - Lumbar . Procedure(s): Right L4/L5 and L5/S1 Facet Medial Branch Blocks #1 Anesthesia Type: Local Complications: none Follow-up Plan: Procedure or clinic follow up based on pain relief Procedure: This patient was seen earlier for a comprehensive evaluation of their painful condition.After discussing treatment options, the patient elected to proceed with a lumbar medial branch block. Written, informed consent was obtained before the start of the procedure. The patient's history of present illness, past medical history (including current medications and allergies), and physical examination were reviewed with the patient immediately before the procedure, and it was confirmed directly with the patient that they desired to proceed. The patient ambulated to the operating room and was placed in the prone position with pressure points padded. A time out was performed, confirming the patient's identification, allergy status, the side(s) of the procedure, and the procedure(s) to be performed. All operators were wearing hats, masksand sterile gloves. The patient underwent ChloraPrep skin prep followed by sterile drape. At each level mentioned above, the needle insertion site for the medial branch blocks was identified by fluoroscopy and marked. The patient received: 1% lidocaine subcutaneously. Under fluoroscopic guidance using a coaxial approach, a 22 g 3.5 inch was advanced until the needle tip contacted the transverse process immediately lateral to the pedicle at each level. Appropriate positioning of each needle tip was confirmed by fluoroscopy in the lateral view. 0.5 mL of contrast dye was injected and did not reveal any intravascular of intrathecal uptake. It confirmed appropriate spread along the medial branch. 0.5 mL of 2% lidocaine was injected through each needle. The stylette was replaced in each needle, then each needle was withdrawn. Sterile bandages was applied over the puncture sites. Following completion of the procedure, the patient was transported to the PACU, then was later discharged in stable condition. Assessment/Plan #Chronic Axial Low Back Pain #Lumbar Spondylosis #Facetogenic pain Pre-Injection Numerical Rating Scale Pain Score: 8/10 Post-Injection Numerical Rating Scale Pain Score: 2/10 Patient Reports 90 % pain relief following the procedure performed as mentioned above. Functional improvement after medial branch block: improvement in bending, twisting, extension, standing, walking Post-Procedure Owestry Disability Index (JOANNE) No questionnaires on file. documented in this encounter Plan of Treatment Upcoming Encounters Date Type Department Care Team (Late st Contact Info) Description 01/11/2025 2:40 PM EDT Office Visit [facility] Interventional Pain Medicine [address] [facility] [place] [address] Luciano Medina MD [address] [facility] [address] [place] [address] 01/30/2025 12:40 PM EST Office Visit [facility] [address] [place] [address] Dago Miller MD [address] [place] [address] documented as of this encounter Procedures Procedure Name Priority Date/Time Associated Diagnosis Comments IVP NURSE PROCEDURE PROTOCOL Routine 10/15/2024 10:30 AM EDT NV INJ DX/THER AGNT PARAVERT FACET JOINT,IMG GUIDE,LUMBAR/SAC, 2ND LEVEL Routine 10/15/2024 10:30 AM EDT Spondylosis of lumbosacral region without myelopathy or radiculopathy NV INJ DX/THER AGNT PARAVERT FACET JOINT,IMG GUIDE,LUMBAR/SAC, 1ST LEVEL Routine 10/15/2024 10:30 AM EDT Spondylosis of lumbosacral region without myelopathy or radiculopathy documented in this encounter Results * Facet MBB - Lumbar (10/29/2024 10:30 AM EDT) Narrative Luciano Medina MD - 10/29/2024 10:30 AM EDT Luciano Medina MD 10/29/2024 1:52 PM Facet MBB - Lumbar Performed by: Luciano Medina MD Authorized by: Luciano Medina MD Procedure: Moderate conscious sedation used?: no Guidance used (if applicable): fluoro Location: Number of levels injected in procedure: 2 Luciano Medina MD IN CLINIC/BEDSIDE ORDERABLES Final Result * Interventional Pain Nurse Procedure Protocol (10/15/2024 10:30 AM EDT) Narrative Radha Santizo RN - 10/15/2024 10:30 AM EDT Radha Santizo RN 10/15/2024 11:39 AM Interventional Pain Nurse Procedure Protocol Documentation: Indications: Documentation supporting primary procedure completed by : Luciano Medina MD See the provider procedure note for performed procedure details and findings. Pre-Procedure Checklist: Currently taking anticoagulant(s)?: no Vulcanizer present?: yes Additional Pre-Procedure Comments: Right lum. FMBB Sunburn on left foot, healing according to pt. Time out called @ 1056 by emerald Procedure details: Procedure start time:: 10/15/2024 10:59 AM Procedure end time:: 10/15/2024 11:03 AM Guidance used (if applicable): fluoro Total amount of contrast dye (mGy): 2.05 Fluoro time: 19.1 seconds Moderate conscious sedation used?: no Post-procedure details: Orientation at discharge?: Normal to time, normal to place, normal to person, normal to situation and completely oriented Mood and Affect normal?: yes Discharged to: home Mode of exit: Walked (@ 1132 am) Attendance: Constant attendance by certified staff until patient recovered Recovery: Patient returned to pre-procedure baseline Estimated blood loss (see I/O flowsheets): no Specimens recovered: None Patient is stable for discharge or admission: yes Procedure completion: Tolerated well, no immediate complications us Luciano Medina MD IN CLINIC/BEDSIDE ORDERABLES Final Result * NV INJ DX/THER AGNT PARAVERT FACET JOINT,IMG GUIDE,LUMBAR/SAC, 1ST LEVEL, NV INJ DX/THER AGNT PARAVERT FACET JOINT,IMG GUIDE,LUMBAR/SAC, 2ND LEVEL (10/15/2024 10:30 AM EDT) Narrative Luciano Medina MD - 10/15/2024 10:30 AM EDT Luciano Medina MD 10/15/2024 11:39 AM Facet MBB - Lumbar Performed by: Luciano Medina MD Authorized by: Yessenia Hale APRN Procedure(s): A right L4-5 and L5-S1 Lumbar medial branch block- diagnostic #1 # Levels: 2 Pre-procedure: This patient was seen earlier for a comprehensive evaluation of their painful condition. After discussing treatment options, the patient elected to proceed with a Facet MBB - Lumbar . 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 documented in this encounter Administered Medications Inactive Administered Medications - up to 3 most recent administrations Medication Order MAR Action Action Date Dose Rate Site bupivacaine PF (Marcaine) 0.25 % injection 25 mg 25 mg (10 mL), Injection, Once, 1 dose, On Tue10/15/24 at 1200, RoutineIndications:Spondylosis of lumbosacral region without myelopathy or radiculopathy Given by Other 10/15/2024 11:00 AM EDT 25 mg lidocaine (Xylocaine) 1 % injection 30 mL 30 mL, Injection, Once, 1 dose, On Tue10/15/24 at 1200, RoutineIndications:Spondylosis of lumbosacral region without myelopathy or radiculopathy Given by Other 10/15/2024 11:00 AM EDT 30 mL sodium bicarbonate 8.4 % injection 50 mEq 50 mEq, Subcutaneous, Once, 1 dose, On Tue10/15/24 at 1200, RoutineIndications:Spondylosis of lumbosacral region without myelopathy or radiculopathy Given by Other 10/15/2024 11:01 AM EDT 50 mEq Other documented in this encounter Additional Health Concerns Assessment Noted Time A fall risk assessment has been complete d for the patient 10/15/2024 10:27 AM EDT A Body Mass Index follow-up plan has been documented for the patient 10/15/2024 11:39 AM EDT documented as of this encounter Care Teams Mold Preparer Relationship Specialty Start Date End Date Sanchez Agosto MD [address] [place] [address] PCP - General 08/08/20 Dago Miller MD [address] [place] [address] Consulting Physician Neurology 09/24/20 documented as of this encounter
--- OUTSIDE RECORDS SUMMARY | 2024-10-29 10:30 | XMS_ITS | Encounter Summary ---
Author Organization [facility] Address [address] [place] [address] Care Team Providers Care Charge Account Identification Clerk Name Role Phone Sanchez Agosto MD Primary Care Provider [phone] Dago Miller MD Unavailable Reason for Referral * Other Medical (Routine) - Closed Specialty Diagnoses / Procedures Referred By Contac t Referred To Contact Pain Medicine Diagnoses Spondylosis of lumbosacral region without myelopathy or radiculopathy Procedures RFA - Lumbar / Sacral Luciano Medina MD [address] [place] [address] Phone: tel: fax: [facility] Interventional Pain Medicine [address] [place] [address] Phone: tel: fax: Referral ID Status Reason Start Date Expiration Date Visits Re quested Visits Authorized [id number] Closed 10/29/2024 04/30/2026 1 1 Reason for Visit * Reason Comments Injections * Other Medical (Routine) - Closed Specialty Diagnoses / Procedures Referred By Contac t Referred To Contact Pain Medicine Diagnoses Spondylosis of lumbosacral region without myelopathy or radiculopathy Procedures Facet MBB - Lumbar Luciano Medina MD [address] [address] Phone: tel: fax: [facility] Interventional Pain Medicine [address] [place] [address] Phone: tel: fax: Referral ID Status Reason Start Date Expiration Date Visits Re quested Visits Authorized [id number] Closed 10/15/2024 04/16/2026 1 1 Encounter Details Date Type Department Care Team (Late st Contact Info) Description 10/29/2024 10:30 AM EDT Procedure Visit [facility] Interventional Pain Medicine [address] [place] [address] Luciano Medina MD [address] [facility] [address] [place] [address] Spondylosis of lumbosacral region without [...] Sign Reading Time Taken Comments Blood Pressure 116/70 10/29/2024 10:36 AM EDT Pulse 77 10/29/2024 10:36 AM EDT Temperature 36.3 C (97.3 F) 10/29/2024 10:20 AM EDT Respiratory Rate 18 10/29/2024 10:36 AM EDT Oxygen Saturation 95% 10/29/2024 10:36 AM EDT Inhaled Oxygen Concentration - - Weight 79.4 kg (175 lb) 10/29/2024 10:20 AM EDT Height 180.3 cm (5' 11 ) 10/29/2024 10:20 AM EDT Body Mass Index 24.41 10/29/2024 10:20 AM EDT documented in this encounter Miscellaneous Notes * Clinician Note - Eliana Powell RN - 10/29/2024 10:30 AM EDTAssociated Order(s): Interventional Pain Nurse Procedure Protocol Interventional Pain Nurse Procedure Protocol Documentation: Indications: Documentation supporting primary procedure completed by : Eliana Powell RN See the provider procedure note for performed procedure details and findings. Pre-Procedure Checklist: Currently taking anticoagulant(s)?: no Loss Prevention Consultant present?: yes Additional Pre-Procedure Comments: Right Lumbar MBB Time out called @ 1030 by emerald Procedure details: Procedure start time:: 10/29/2024 10:33 AM Procedure end time:: 10/29/2024 10:35 AM Guidance used (if applicable): fluoro Total amount of contrast dye (mGy): 1.19 Fluoro time: 9 seconds Moderate conscious sedation used?: no Post-procedure details: Orientation at discharge?: Normal to time, normal to place, normal to person, normal to situation and completely oriented Mood and Affect normal?: yes Discharged to: home Mode of exit: Walked (to cat driver in hallway @10:51 AM) Attendance: Constant attendance by certified staff until patient recovered Recovery: Patient returned to pre-procedure baseline Estimated blood loss (see I/O flowsheets): no Specimens recovered: None Patient is stable for discharge or admission: yes Procedure completion: Tolerated well, no immediate complications * Progress Notes - Luciano Medina MD - 10/29/2024 10:30 AM EDTAssociated Order(s): Facet MBB - [...] Number of levels injected in procedure: 2 Patient seen and evaluated prior to their procedure.There is nothing in the patient's overall condition that would affect the planned course of the patient's treatment today that requires additional interventions to reduce risk to the patient. Procedure(s): Right L4/L5 and L5/S1 Facet Medial Branch Blocks #2 Anesthesia Type: Local Complications: none Follow-up Plan: [...] 8/10 Post-Injection Numerical Rating Scale Pain Score: 0/10 Patient Reports 100 % pain relief following the procedure performed as mentioned above. Functional improvement after medial branch block: improvement in bending, twisting, extension, standing, walking Will order and proceed with facet medial branch radiofrequency ablation at the same mentioned levels and laterality as above performed medial branch blocks under fluoroscopy Post-Procedure Owestry Disability Index (JOANNE) No questionnaires on file. documented in this encounter Plan of Treatment Upcoming Encounters Date Type Department Care Team (Late st Contact Info) Description 01/11/2025 2:40 PM EDT Office Visit [facility] Interventional Pain Medicine [address] [place] [address] Luciano Medina MD [address] [place] [address] 01/30/2025 12:40 PM EST Office Visit [facility] [address] [place] [address] Dago Miller MD [address] [place] [address] documented as of this encounter Procedures Procedure Name Priority Date/Time Associated Diagnosis Comments IVP NURSE PROCEDURE PROTOCOL Routine 10/29/2024 10:30 AM EDT FACET MBB - LUMBAR Routine 10/29/2024 10 :30 AM EDT Spondylosis of lumbosacral region without myelopathy or radiculopathy documented in this encounter Results * RFA - Lumbar / Sacral (11/20/2024 9:00 AM EDT) Narrative Luciano Medina MD - 11/20/2024 9:00 AM EDT Luciano Medina MD 11/20/2024 9:40 AM RFA - Lumbar / Sacral Performed by: Rosalio Rudolph DO Authorized by: Luciano Medina MD us Luciano Medina MD IN CLINIC/BEDSIDE ORDERABLES Final Result * Interventional Pain Nurse Procedure Protocol (10/29/2024 10:30 AM EDT) Narrative Sherly Colvin RN - 10/29/2024 10:30 AM EDT Sherly Colvin RN 10/29/2024 1:52 PM Interventional Pain Nurse Procedure Protocol Documentation: Indications: Documentation supporting primary procedure completed by : Eliana Powell RN See the provider procedure note for performed procedure details and findings. Pre-Procedure Checklist: Currently taking anticoagulant(s)?: no Loss Prevention Consultant present?: yes Additional Pre-Procedure Comments: Right Lumbar MBB Time out called @ 1030 by emerald Procedure details: Procedure start time:: 10/29/2024 10:33 AM Procedure end time:: 10/29/2024 10:35 AM Guidance used (if applicable): fluoro Total amount of contrast dye (mGy): 1.19 Fluoro time: 9 seconds Moderate conscious sedation used?: no Post-procedure details: Orientation at discharge?: Normal to time, normal to place, normal to person, normal to situation and completely oriented Mood and Affect normal?: yes Discharged to: home Mode of exit: Walked (to cat driver in hallway @10:51 AM) Attendance: Constant attendance by certified staff until patient recovered Recovery: Patient returned to pre-procedure baseline Estimated blood loss (see I/O flowsheets): no Specimens recovered: None Patient is stable for discharge or admission: yes Procedure completion: Tolerated well, no immediate complications us Luciano Medina MD IN CLINIC/BEDSIDE ORDERABLES Final Result * Facet MBB - Lumbar (10/29/2024 10:30 AM EDT) Narrative Luciano Medina MD - 10/29/2024 10:30 AM EDT Luciano Medina MD 10/29/2024 1:52 PM Facet MBB - Lumbar Performed by: Luciano Medina MD Authorized by: Luciano Medina MD Procedure: Moderate conscious sedation used?: no Guidance used (if applicable): fluoro Location: Number of levels injected in procedure: 2 us Luciano Medina MD IN CLINIC/BEDSIDE ORDERABLES Final Result documented in this encounter Visit [...] (10 mL), Injection, Once, 1 dose, On Tue10/29/24 at 1130, RoutineIndications:Spondylosis of lumbosacral region without myelopathy or radiculopathy Given by Other 10/29/2024 10:33 AM EDT 25 mg lidocaine (Xylocaine) 1 % injection 30 mL 30 mL, Injection, Once, 1 dose, On Tue10/29/24 at 1130, RoutineIndications:Spondylosis of lumbosacral region without myelopathy or radiculopathy Given by Other 10/29/2024 10:33 AM EDT 30 mL sodium bicarbonate 8.4 % injection 50 mEq 50 mEq, Subcutaneous, Once, 1 dose, On Tue10/29/24 at 1130, RoutineIndications:Spondylosis of lumbosacral region without myelopathy or radiculopathy Given by Other 10/29/2024 10:33 AM EDT 50 mEq Other documented in this encounter Additional Health Concerns Assessment Noted Time A fall risk assessment has been complete d for the patient 10/29/2024 10:19 AM EDT A Body Mass Index follow-up plan has been documented for the patient 10/29/2024 1:52 PM EDT documented as of this encounter Care Teams Charge Account Identification Clerk Relationship Specialty Start Date End Date Sanchez Agosto MD [address] [place] [address] PCP - General 08/08/20 Dago Miller MD [address] [place] [address] Consulting Physician Neurology 09/24/20 documented as of this encounter
--- OUTSIDE RECORDS SUMMARY | 2024-11-20 09:00 | XMS_ITS | Encounter Summary ---
Author Organization Healthcare Address [address] [place] [address] Care Team Providers Care Molecular Modeler Name Role Phone Sanchez Agosto MD Primary Care Provider [phone] Dago Miller MD Unavailable Reason for Visit * Reason Comments Injections * Other Medical (Routine) - Closed Specialty Diagnoses / Procedures Referred By Contac t Referred To Contact Pain Medicine Diagnoses Spondylosis of lumbosacral region without myelopathy or radiculopathy Procedures RFA - Lumbar / Sacral Luciano Medina MD [address] [address] Phone: tel: fax: [facility] Interventional Pain Medicine [address] [place] [address] Phone: tel: fax: Referral ID Status Reason Start Date Expiration Date Visits Re quested Visits Authorized [id number] Closed 10/29/2024 04/30/2026 1 1 Encounter Details Date Type Department Care Team (Late st Contact Info) Description 11/20/2024 9:00 AM EDT Procedure Visit [facility] Interventional Pain Medicine [address] [place] [address] Luciano Medina MD [address] [place] [address] Spondylosis of lumbosacral region without myelopathy or [...] Sign Reading Time Taken Comments Blood Pressure 105/61 11/20/2024 9:25 AM EDT Pulse 62 11/20/2024 9:25 AM EDT Temperature 35.8 C (96.5 F) 11/20/2024 8:29 AM EDT Respiratory Rate 16 11/20/2024 9:25 AM EDT Oxygen Saturation 93% 11/20/2024 9:25 AM EDT Inhaled Oxygen Concentration - - Weight 79.4 kg (175 lb) 11/20/2024 8:29 AM EDT Height 180.3 cm (5' 11 ) 11/20/2024 8:29 AM EDT Body Mass Index 24.41 11/20/2024 8:29 AM EDT documented in this encounter Miscellaneous Notes * Clinician Note - Eliana Powell RN - 11/20/2024 9:00 AM EDTAssociated Order(s): Interventional Pain Nurse Procedure Protocol Interventional Pain Nurse Procedure Protocol Documentation: Indications: Documentation supporting primary procedure completed by : Luciano Medina MD See the provider procedure note for performed procedure details and findings. Pre-Procedure Checklist: Currently taking anticoagulant(s)?: no Operating Systems Specialist present?: yes Additional Pre-Procedure Comments: Right Lumb RFA A timeout was called immediately prior to the procedure, in accordance with [employer] policy @ 0856 Procedure details: Procedure start time:: 11/20/2024 8:59 AM Procedure end time:: 11/20/2024 9:08 AM Guidance used (if applicable): fluoro Total amount of contrast dye (mGy): 5.03 Fluoro time: 30.1 seconds Moderate conscious sedation used?: no Post-procedure details: Orientation at discharge?: Normal to time, normal to place, normal to person, normal to situation and completely oriented Mood and Affect normal?: yes Discharged to: home Mode of exit: Walked (walked to [facility] @ 0930) Attendance: Constant attendance by certified staff until patient recovered Recovery: Patient returned to pre-procedure baseline Estimated blood loss (see I/O flowsheets): no Specimens recovered: None Patient is stable for discharge or admission: yes Procedure completion: Tolerated well, no immediate complications * Progress Notes - Rosalio Rudolph DO - 11/20/2024 9:00 AM EDTAssociated Order(s): RFA - Lumbar / Sacral Pre-Procedure Diagnose(s): Spondylosis of lumbosacral region without myelopathy or radiculopathy Post-Procedure Diagnose(s): Spondylosis of lumbosacral region without myelopathy or radiculopathy Patient ID: Tommie Xie is a 79 y.o. male. Encounter Diagnosis Name Primary? Spondylosis of lumbosacral region without myelopathy or radiculopathy RFA - Lumbar / Sacral Performed by: Rosalio Rudolph DO Authorized by: Luciano Medina MD Patient seen and evaluated prior to their procedure.There is nothing in the patient's overall condition that would affect the planned course of the patient's treatment today that requires additional interventions to reduce risk to the patient. Procedure(s): Right L4/L5 and L5/S1 lumbar medial branch radiofrequency ablation Anesthesia Type: Local Complications: none Follow-up Plan: Clinic follow up as scheduled Procedure: This patient was seen earlier for a comprehensive evaluation of their painful condition.After discussing treatment options, the patient elected to proceed with a lumbar medial branch ablation. Written, informed consent was obtained before the start of the procedure. The patient's history of present illness, past medical history (including current medications and allergies), and physical examination were reviewed with the patient immediately before the procedure, and it was confirmeddirectly with the patient that they desired to [...] ChloraPrep skin prep followed by sterile drape. The needle insertion site for each medial branch radiofrequency ablation site, as mentioned above, was identified by fluoroscopy and marked. The patient received: 2% lidocaine subcutaneously. Under fluoroscopic guidance using a coaxial approach, 18 g 3.5 inch radiofrequency cannula was advanced until the needle tip contacted the transverse process immediately lateral to the pedicle at each level.At the sacral ala (if included), the needle was advanced under fluoroscopic guidance using a coaxial approach until the needle came into contact with the sacral ala. Appropriate positioning of each needle tip was confirmed by fluoroscopy in the lateral view. Nerve testing was then performed at each level. Motor stimulation was then performed at 2 Hz with Vof 1.5 at each site. At no time was a radicular pattern of stimulation noted. No motor stimulation of the leg was noted and confirmed verbally with the patient. Then each cannula was injected with 1 mL of 2% lidocaine. After approximately 60 seconds, radiofrequency ablation was then performed at 80degrees C for 90 seconds. The needles were then rotated 180 degrees and slightly withdrawn confirmed on a lateral view. Radiofrequency ablation was then performed at 80 degrees C for 90 seconds. The stylettes were then replaced at the needles removed. Sterile bandages were applied over the puncturesites. Following completion of the procedure, the patient was transported to the PACU, then was later discharged in stable condition. Cosigned by Luciano Medina MD at 11/20/2024 9:40 AM EDT Associated attestation - Luciano Medina MD - 11/20/2024 9:40 AM EDT I was present for the entirety of the procedure(s). documented in this encounter Plan of Treatment Upcoming Encounters Date Type Department Care Team (Late st Contact Info) Description 01/11/2025 2:40 PM EDT Office Visit [facility] Interventional Pain Medicine [address] [address] Luciano Medina MD [address] [place] [address] 01/30/2025 12:40 PM EST Office Visit [facility] [address] [place] [address] Dago Miller MD [address] [place] [address] documented as of this encounter Procedures Procedure Name Priority Date/Time Associated Diagnosis Comments IVP NURSE PROCEDURE PROTOCOL Routine 11/20/2024 9:00 AM EDT PBPROC Routine 11/20/2024 9:00 AM EDT Spondylosis of lumbosacral region without myelopathy or radiculopathy documented in this encounter Results * Interventional Pain Nurse Procedure Protocol (11/20/2024 9:00 AM EDT) Narrative Eliana Powell, RN - 11/20/2024 9:00 AM EDT Eliana Powell RN 11/20/2024 9:41 AM Interventional Pain Nurse Procedure Protocol Documentation: Indications: Documentation supporting primary procedure completed by : Luciano Medina MD See the provider procedure note for performed procedure details and findings. Pre-Procedure Checklist: Currently taking anticoagulant(s)?: no Operating Systems Specialist present?: yes Additional Pre-Procedure Comments: Right Lumb RFA A timeout was called immediately prior to the procedure, in accordance with [employer] policy @ 0856 Procedure details: Procedure start time:: 11/20/2024 8:59 AM Procedure end time:: 11/20/2024 9:08 AM Guidance used (if applicable): fluoro Total amount of contrast dye (mGy): 5.03 Fluoro time: 30.1 seconds Moderate conscious sedation used?: no Post-procedure details: Orientation at discharge?: Normal to time, normal to place, normal to person, normal to situation and completely oriented Mood and Affect normal?: yes Discharged to: home Mode of exit: Walked (walked to lobby @ 0930) Attendance: Constant attendance by certified staff until patient recovered Recovery: Patient returned to pre-procedure baseline Estimated blood loss (see I/O flowsheets): no Specimens recovered: None Patient is stable for discharge or admission: yes Procedure completion: Tolerated well, no immediate complications us Luciano Medina MD IN CLINIC/BEDSIDE ORDERABLES Final Result * RFA - Lumbar / Sacral (11/20/2024 [...] (10 mL), Injection, Once, 1 dose, On Tue11/20/24 at 0945, RoutineIndications:Spondylosis of lumbosacral region without myelopathy or radiculopathy Given by Other 11/20/2024 8:57 AM EDT 25 mg lidocaine PF (Xylocaine) 1 % injection 300 mg 300 mg (30 mL), Injection, Once, 1 dose, On Tue11/20/24 at 0945, RoutineIndications:Spondylosis of lumbosacral region without myelopathy or radiculopathy Given by Other 11/20/2024 8:57 AM EDT 300 mg sodium bicarbonate 8.4 % injection 50 mEq 50 mEq, Intradermal, Once, 1 dose, On Tue11/20/24 at 0945, RoutineIndications:Spondylosis of lumbosacral region without myelopathy or radiculopathy Given by Other 11/20/2024 8:57 AM EDT 50 mEq documented in this encounter Additional Health Concerns Assessment Noted Time A fall risk assessment has been complete d for the patient 11/20/2024 8:29 AM EDT A Body Mass Index follow-up plan has been documented for the patient 11/20/2024 9:41 AM EDT documented as of this encounter Care Teams Molecular Modeler Relationship Specialty Start Date End Date Sanchez Agosto MD [address] [place] [address] PCP - General 08/08/20 Dago Miller MD [address] [place] [address] Consulting Physician Neurology 09/24/20 documented as of this encounter
--- OUTSIDE RECORDS SUMMARY | 2024-11-22 14:30 | XMS_ITS | Clinical Summary ---
Author Organization [facility] Address [address] [place] [address] Care Team Providers Care Orthopedics Teacher Name Role Phone Sanchez Agosto MD Primary Care Provider [phone] Source Comments This information has been disclosed to you from confidential records protectedfrom disclosure by state law. You shall make no further disclosure of thisinformation without the specific, written, and informed release of theindividual to whom it pertains, or as otherwise permitted by law. A generalauthorization for the release of medical or other information is not sufficientfor the purposes of the release of HIV test results or diagnoses. [id number] Allergies No known active allergies Medications atorvastatin (LIPITOR) 40 MG tabletIndications:P rimary osteoarthritis of left knee TAKE 1 TABLET AT BEDTIME. 9 Active citalopram (CELEXA) 20 MG tabletIndications:P rimary osteoarthritis of left knee Take by mouth. 1 Active clonazePAM (KLONOPIN) 0.5 MG tabletIndications:P rimary osteoarthritis of left knee Take 1/2 tablet in the AM and 1/2 in the PM 9 Active lisinopriL (PRINIVIL) 10 MG tabletIndications:P rimary osteoarthritis of left knee Take 1 tablet daily 9 Active mirtazapine (REMERON) 30 MG tabletIndications:P rimary osteoarthritis of left knee TAKE 1 TABLET AT BEDTIME. 9 Active tamsulosin (FLOMAX) 0.4 mg CapIndications:Prim roque osteoarthritis of left knee TAKE 1 CAPSULE Bedtime 0 Active carbidopa-levodopa (SINEMET) 25-100 mg per tabletIndications:P rimary osteoarthritis of left knee TAKE ONE TABLET BY MOUTH FOUR TIMES DAILY 1 Active calcium carbonate (TUMS) 200 mg calcium (500 mg) chewable tabletIndications:P rimary osteoarthritis of left knee 9 Active glucosamine-chondro itin 500-400 mg tabletIndications:P rimary osteoarthritis of left knee Take 1 tablet by mouth 3 times a day. Active b complex vitamins capsuleIndications: Primary osteoarthritis of left knee Take 1 capsule by mouth daily. Active ibuprofen (MOTRIN) 400 MG tabletIndications:P rimary osteoarthritis of left knee Take 400 mg by mouth every 6 hours as needed for Pain. Active gabapentin (NEURONTIN) 300 MG capsule Take 1 capsule (300 mg total) by mouth 3 times a day. 90 capsule 02/04/2021 5:29 PM EST 1 Active senna (SENNA) 8.6 mg tablet Take 1 tablet by mouth daily. 30 tablet 1 Active Active Problems Problem Noted Date Diagnosed Date Status post total left knee replacement 08/28/19 22 S/P total knee replacement using cement, left Essential hypertension 01/21/2021 Hyperlipidemia 01/21/2021 BIRD (obstructive sleep apnea) 01/21/2021 Parkinson's disease 01/21/2021 Depression 01/21/2021 Anxiety 01/21/2021 Primary osteoarthritis of left knee 12/29/2020 Family History Medical History Relation Comments Anesthesia problems Neg Hx Coronary artery disease Neg Hx Stroke Neg Hx Social History Tobacco Use Types Packs/Day Years Used Date Smoking Tobacco: Former Cigarettes Q uit: 1994 Smokeless Tobacco: Never Comments:socially Alcohol Use Standard Drinks/Week Comments Yes 12 (1 standard drink = 0.6 oz pu re alcohol) PHQ-2 Answer Date Recorded PHQ-2 Total Score 2 12/29/2020 Sex and Gender Information Value Date Recorded Sex Assigned at Not on file Legal Sex Male 10:37 AM EDT Gender Identity Not on file Sexual Orientation Not on file Last Filed Vital Signs Vital Sign Reading Time Taken Comments Blood Pressure 120/66 02/04/2021 3:55 PM EST Pulse 72 02/04/2021 3:55 PM EST Temperature 36.2 C (97.2 F) 02/04/2021 12:03 PM EST Respiratory Rate 20 02/04/2021 3:02 PM EST Oxygen Saturation 99% 02/04/2021 3:13 PM EST Inhaled Oxygen Concentration 99% 02/04/2021 3 :13 PM EST Weight 81.6 kg (180 lb) 08/27/2021 10:41 AM EDT Height 182.9 cm (6') 08/27/2021 10:41 AM EDT Body Mass Index 24.41 08/27/2021 10:41 AM EDT Plan of Treatment Health Maintenance Due Date Last Done Comments Alcohol Misuse Screening 10/15/1963 Immunization: DTaP/Tdap/Td ( 1 - Tdap) 05/31/1996 05/30/1996 Immunization: Pneumococcal ( 2 of 2 - PCV) 09/06/2017 09/06/2016, 03/28/2013 Immunization: Zoster (2 of 2) 01/20/2018 11/25/2017 Immunization: RSV (Adult) (1 - 1-dose 75+ series) 2020 Depression Screening 12/29/2021 12/29/2020 Immunization: COVID-19 ( season) 2023 06/24/2021, 12/03/2020, 05/05/2020, Additional history exists Immunization: Influenza (MyC soliz) (#1) 2024 01/05/2021, 01/10/2020, 01/15/2019, Additional history exists Medical Devices Implanted Type Area Printing Table Worker Device Identifier Shelf Expiration Date Model / Serial / Lot Cement Bone Versabond Ab Pmma Gentamicin 40 Gm 1 Dose Medium Viscosity Sterile - [id number] Implanted:Qty: 2 on 02/04/2021 by Yaron Menjivar MD at [facility] Bone Left: Knee [employer] 11/25/2025 [id number] / / [id number] Baseplate Tib 5 Kn Lt Cmnt M Tpr Legion Ti Npor - [id number] Implanted:Qty: 1 on 02/04/2021 by Yaron Menjivar MD at [facility] Main Orthopedic Left: Knee [employer] 11/11/2030 [id number] / / [id number] Baseplate Tib 5 Kn Lt Cmnt M Tpr Legion Ti Npor - [id number] Implanted:Qty: 1 on 02/04/2021 by Yaron Menjivar MD at [facility] Main Orthopedic Left: Knee [employer] 11/11/2030 [id number] / / [id number] Component Ptlr 32mm Rsrfc Gns2 Kn - [id number] Implanted:Qty: 1 on 02/04/2021 by Yaron Menjivar MD at [facility] Main Patella Left: Knee [employer] 09/15/2030 [id number] / / [id number] Component Femoral Rosetta Ii Oxinium 6 Knee Left Cruciate Retain - [id number] Implanted:Qty: 1 on 02/04/2021 by Yaron Menjivar MD at [facility] Main Total Joint Left: Knee [employer] 03/04/2030 [id number] / / [id number] Insert Artc 5-6 9mm Kn Crcte Rtn Hi Flxn Xlpe Legion - [id number] Implanted:Qty: 1 on 02/04/2021 by Yaron Menjivar MD at [facility] Main Total Joint Left: Knee [employer] 07/09/2028 [id number] / / [id number] Lgn Gii Cr Verilast Insecticide Supervisor Tib ( Total Joint Bundle Charge ) Implanted:Qty: 1 on 02/04/2021 by Yaron Menjivar MD at [facility] Main Left: Knee [id number] / / Insurance [employer] CHO[employer] PPO MEDICARE Care Teams Orthopedics Teacher Relationship Specialty Start Date End Date Sanchez Agosto MD [address] [place] [address] PCP - General Internal Medicine 11/27/20
--- OUTSIDE RECORDS SUMMARY | 2024-11-22 14:30 | XMS_ITS | Clinical Summary ---
Author Organization [facility] Address [address] [place] [address] Care Team Providers Care Kit Planner Name Role Phone Sanchez Agosto MD Primary Care Provider [phone] Dago Miller MD Unavailable Allergies No known active allergies Medications MULTIPLE VITAMINS-CALCIU M PO 4 Active calcium carbonate (Tums) 500 MG chewable tablet 9 Active atorvastatin (Lipitor) 40 MG tablet TAKE 1 TABLET AT BEDTIME. 9 Active clonazePAM (KlonoPIN) 0.5 MG tablet Take 1/2 tablet in the AM and 1/2 in the PM 9 Active Glucosamine HCl (GLUCOSAMINE PO) 4 Active mirtazapine (Remeron) 30 MG tablet TAKE 1 TABLET AT BEDTIME. 9 Active multivitamin-mi nerals-folic acid-coenzyme q10 (Preservision AREDS 2) capsule 9 Active triamcinolone (Kenalog) 0.1 % cream 4 Active glucosamine-cho ndroitin 500-400 MG tablet Take 1 tablet by mouth 3 times a day. Active sildenafil (Viagra) 100 MG tablet TAKE ONE TABLET BY MOUTH EVERY DAY NEEDED DIRECTED 1 Active triamcinolone (Kenalog) 0.025 % cream APPLY TOPICALLY TO THE AFFECTED AREA(S) TWICE DAILY FOR 7 DAYS -- FOR EXTERNAL USE ONLY-- 3 Active carbidopa-levod opa (Sinemet) 25-100 MG tabletIndicatio ns:Parkinson's disease Take 2 tablets by mouth 4 (four) times a day. 720 tablet 3 4 12/20/19 Active venlafaxine XR (Effexor-XR) 150 MG 24 hr capsule Take 1 capsule (150 mg) by mouth daily. Active venlafaxine XR (Effexor-XR) 75 MG 24 hr capsule Take 1 capsule (75 mg) by mouth every morning. Active tamsulosin (Flomax) 0.4 MG 24 hr capsule TAKE ONE CAPSULE BY MOUTH EVERY NIGHT 90 capsule 1 Active clonazePAM (KlonoPIN) 1 MG tablet Take 1 tablet by mouth 2 times a day as needed. Active lisinopril 5 MG tablet Take 1 tablet by mouth daily. Active fish oil ([place]-3) 500 MG capsule Take 1 capsule by mouth daily. Active methylPREDNISol one (Medrol Dospak) 4 MG tablets Follow schedule on package instructions 21 tablet Active Additional Information Patient not taking.Reported on 11/20/2024 lisinopril 10 MG tablet Take 1 tablet by mouth daily. Active Hospital, Clinic, or Other Facility Administered Medication Ordered Dose Route Frequency Start Date End Date Status sodium bicarbonate 8.4 % injection 50 mEqIndications:Spondylosis of lumbosacral region without myelopathy or radiculopathy 50 mEq SC Once 10/29/2024 10/29/2024 Ended lidocaine (Xylocaine) 1 % injection 30 mLIndications:Spondylosis of lumbosacral region without myelopathy or radiculopathy 30 mL IJ Once 10/29/2024 10/29/2024 Ended bupivacaine PF (Marcaine) 0.25 % injection 25 mgIndications:Spondylosis of lumbosacral region without myelopathy or radiculopathy 25 mg IJ Once 10/29/2024 10/29/2024 Ended lidocaine PF (Xylocaine) 1 % injection 300 mgIndications:Spondylosis of lumbosacral region without myelopathy or radiculopathy 300 mg IJ Once 11/20/2024 11/20/2024 Ended bupivacaine PF (Marcaine) 0.25 % injection 25 mgIndications:Spondylosis of lumbosacral region without myelopathy or radiculopathy 25 mg IJ Once 11/20/2024 11/20/2024 Ended sodium bicarbonate 8.4 % injection 50 mEqIndications:Spondylosis of lumbosacral region without myelopathy or radiculopathy 50 mEq ID Once 11/20/2024 11/20/2024 Ended Active Problems No known active problems Encounters Date Type Department Care Team Description 11/20/2024 9:00 AM EDT Procedure Visit [facility] Interventional Pain Medicine [address] [place] [address] Luciano Medina MD Spondylosis of lumbosacral region without myelopathy or radiculopathy 11/20/2024 Orders Only External Location [address] [place] [address] Provider, External 11/20/2024 Travel 10/29/2024 10:30 AM EDT Procedure Visit [facility] Interventional Pain Medicine [facility] [place] [address] Luciano Medina MD Spondylosis of lumbosacral region without myelopathy or radiculopathy 10/29/2024 Orders Only External Location [address] [place] [address] Provider, External 10/29/2024 Travel 10/15/2024 10:30 AM EDT Procedure Visit [facility] Interventional Pain Medicine [facility] [place] [address] Luciano Medina MD Spondylosis of lumbosacral region without myelopathy or radiculopathy 10/15/2024 Orders Only External Location [address] [place] [address] Provider, External 10/15/2024 Travel 09/12/2024 11:40 AM EDT Office Visit [facility] Interventional Pain Medicine [address] [place] [address] Luciano Medina MD Spondylosis of lumbosacral region without myelopathy or radiculopathy (Primary Dx); Spinal stenosis, lumbar region with neurogenic claudication; Sacroiliitis, not elsewhere classified (CMS/HCC) 09/12/2024 Telephone [facility] Interventional Pain Medicine [facility] [place] [address] Luciano Medina MD [facility] Clinical Concern/Question 09/12/2024 Travel from Last 3 Months Immunizations Immunization Administration Dates Next Due Influenza, Unspecified 12/29/2016 Influenza, seasonal, injectable 03/28/2013 Moderna COVID-19 Vaccine (Progressive Care Unit Registered Nurse) 12+ years 10/2020,04/04/2020 Pneumococcal Polysaccharide PPV23 03/28/2013 Family History Medical History Relation Name Comments Conversions - Other Father [place] Abdomina l aneurysm Dementia Father [place] Other cancer Father [place] Dementia Father's Brother Edis Xie Alzheimer's disease Mother Aliza Xie Conversions - Other Mother Aliza Xie Abdomina l aneurysm Dementia Mother Aliza Xie Other cancer Mother Aliza Xie Relation Name Status Comments Father [place] Father's Brother Edis Xie Mother Aliza Xie Social History Tobacco Use Types Packs/Day Years [...] Mass Index 24.41 11/20/2024 8:29 AM EDT Plan of Treatment Upcoming Encounters Date Type Department Care Team (Late st Contact Info) Description 01/11/2025 2:40 PM EDT Office Visit [facility] Interventional Pain Medicine [address] [facility] [place] [address] Luciano Medina MD [address] [place] [address] 01/30/2025 12:40 PM EST [facility] [address] [place] [address] Dago Miller MD [address] [place] [address] Health Maintenance Due Date Last Done Comments [facility]-Hepatitis C Screening 1945 [facility]-Medicare Annual Wellness (AWV) 1945 [facility]-Infant/Child/Adol SDOH Screenings 1945 [facility]- SDOH Screenings 10/15/1963 [facility]-Adult SDOH Screenings 10/15/1963 [facility]-DTaP,Tdap,and Td Vaccines (1 - Tdap) 05/31/1996 05/30/1996 [facility]-Pneumococcal Vaccine: 50+ Years (2 of 2 - PCV) 09/06/2017 09/06/2016, 03/28/2013 [facility]-Zoster Vaccines (2 of 2) 01/20/2018 11/25/2017 [facility]-RSV Vaccine: 60+ Years or (1 - 1-dose 75+ series) 2020 [id number] Vaccine (5 - season) 2023 06/24/2021, 12/03/2020, 05/05/2020, Additional history exists [facility]-Influenza Vaccine (#1) 11/26/202412/07, 12/29/2016, 03/28/2013 [facility]-Depression Screening 09/12/2025 09/12/2024 [facility]-Hepatitis A Vaccines Aged Out 11/25/2017 No longer eligible based on patient's age to complete this topic HPV Vaccines Aged Out No longer eligi ble based on patient's age to complete this topic [facility]-HIB Vaccines Aged Out No longer e ligible based on patient's age to complete this topic [facility]-IPV Vaccines Aged Out No longer e ligible based on patient's age to complete this topic [facility]-Rotavirus Vaccines Aged Out No lo nger eligible based on patient's age to complete this topic Procedures Procedure Name Priority Date/Time Associated Diagnosis Comments IVP NURSE PROCEDURE PROTOCOL Routine 11/20/2024 9:00 AM EDT PBPROC Routine 11/20/2024 9:00 AM EDT Spondylosis of lumbosacral region without myelopathy or radiculopathy POC ULTRASOUND 11/20/2024 IVP NURSE PROCEDURE PROTOCOL Routine 10/29/2024 10:30 AM EDT FACET MBB - LUMBAR Routine 10/29/2024 10 :30 AM EDT Spondylosis of lumbosacral region without myelopathy or radiculopathy POC ULTRASOUND 10/29/2024 IVP NURSE PROCEDURE PROTOCOL Routine 10/15/2024 10:30 AM EDT AL INJ DX/THER AGNT PARAVERT FACET JOINT,IMG GUIDE,LUMBAR/SAC, 2ND LEVEL Routine 10/15/2024 10:30 AM EDT Spondylosis of lumbosacral region without myelopathy or radiculopathy AL INJ DX/THER AGNT PARAVERT FACET JOINT,IMG GUIDE,LUMBAR/SAC, 1ST LEVEL Routine 10/15/2024 10:30 AM EDT Spondylosis of lumbosacral region without myelopathy or radiculopathy POC ULTRASOUND 10/15/2024 from Last 3 Months Results * Interventional Pain Nurse Procedure Protocol (11/20/2024 9:00 AM EDT) Narrative Eliana Powell RN - 11/20/2024 9:00 AM EDT Eliana Powell RN 11/20/2024 9:41 AM Interventional Pain Nurse Procedure Protocol Documentation: Indications: Documentation supporting primary procedure completed by : Luciano Medina MD See the provider procedure note for performed procedure details and findings. Pre-Procedure Checklist: Currently taking anticoagulant(s)?: no Electronic Musical Instrument Repairer present?: yes Additional Pre-Procedure Comments: Right Lumb RFA A timeout was called immediately prior to the procedure, in accordance with [facility] policy @ 0856 Procedure details: Procedure start [...] home Mode of exit: Walked (walked to [facility] @ 0930) Attendance: Constant attendance by [...] MD IN CLINIC/BEDSIDE ORDERABLES Final Result * POC Imaging (11/20/2024) Only the most recent of3 resultswithin the time period is included. Anatomical Region Laterality Modality Pelvis Other 11/20/2024 us External Provider IMG POINT OF CARE ULTRASOUND F inal Result * Interventional Pain Nurse Procedure Protocol (10/29/2024 10:30 AM EDT) Narrative Sherly Colvin RN - 10/29/2024 10:30 AM EDT Sherly Colvin RN 10/29/2024 1:52 PM Interventional Pain Nurse Procedure Protocol Documentation: Indications: Documentation supporting primary procedure completed by : Eliana Powell RN See the provider procedure note for performed procedure details and findings. Pre-Procedure Checklist: Currently taking anticoagulant(s)?: no Electronic Musical Instrument Repairer present?: yes Additional Pre-Procedure Comments: Right Lumbar [...] to: home Mode of exit: Walked (to line haul truck driver in hallway @10:51 AM) Attendance: Constant [...] findings. Pre-Procedure Checklist: Currently taking anticoagulant(s)?: no Electronic Musical Instrument Repairer present?: yes Additional Pre-Procedure Comments: Right lum. [...] MD IN CLINIC/BEDSIDE ORDERABLES Final Result * AL INJ DX/THER AGNT PARAVERT FACET JOINT,IMG GUIDE,LUMBAR/SAC, 1ST LEVEL, AL INJ DX/THER AGNT PARAVERT FACET JOINT,IMG GUIDE,LUMBAR/SAC, [...] with a Facet MBB - Lumbar . us Yessenia Hale APRN IN CLINIC/BEDSIDE ORDERAB LES Final Result from Last 3 Months Insurance [facility] MEDICARE Care Teams Kit Planner Relationship Specialty Start Date End Date Sanchez Agosto MD [address] [place] [address] PCP - General 08/08/20 Dago Miller MD [address] [place] [address] Consulting Physician Neurology 09/24/20
--- OUTSIDE RECORDS SUMMARY | 2024-11-22 14:31 | XMS_ITS | Encounter Summary ---
Author Organization Healthcare Address [address] [place] [address] Care Team Providers Care Ropeman Name Role Phone Sanchez Agosto MD Primary Care Provider [phone] Dago Miller MD Unavailable Reason for Visit * Reason Comments Med Refill Encounter Details Date Type Department Care Team (Late st Contact Info) Description 10/27/2022 Refill [place] [facility] [address] [place] [address] Dago Miller MD [address] [place] [address] Social History Tobacco Use Types Packs/Day Years Used Date Smoking Tobacco: Former Smokeless Tobacco: Never Alcohol Use Standard Drinks/Week Comments Yes 0 (1 standard drink = 0.6 oz pure alcohol) Alcoholic Drinks/day: Consumes alcohol occasionally Sex and Gender Information Value Date Recorded Sex Assigned at Not on file Legal Sex Male 7:48 PM EDT Gender Identity Not on file Sexual Orientation Not on file documented as of this encounter Plan of Treatment Upcoming Encounters Date Type Department Care Team (Late st Contact Info) Description 01/11/2025 2:40 PM EDT Office Visit [facility] Interventional Pain Medicine [address] [place] [address] Luciano Medina MD [address] [facility] [address] [place] [address] 01/30/2025 12:40 PM EST Office Visit [place] [facility] [address] [place] [address] Dago Miller MD [address] [place] [address] documented as of this encounter Visit Diagnoses Not on filedocumented in this encounter Additional Health Concerns Assessment Noted Time A fall risk assessment has been complete d for the patient 05/19/2022 9:19 AM EST documented as of this encounter Care Teams Ropeman Relationship Specialty Start Date End Date Sanchez Agosto MD [address] [place] [address] PCP - General 08/08/20 Dago Miller MD [address] [place] [address] Consulting Physician Neurology 09/24/20 documented as of this encounter
--- OUTSIDE RECORDS SUMMARY | 2024-11-22 14:31 | XMS_ITS | Encounter Summary ---
Author Organization Healthcare Address [address] [place] [address] Care Team Providers Care Reagent Tender Helper Name Role Phone Sanchez Agosto MD Primary Care Provider [phone] Dago Miller MD Unavailable Encounter Details Date Type Department Care Team (Late st Contact Info) Description 03/08/2013 Orders Only External Location [address] [place] [address] Provider, External Social History Tobacco Use Types Packs/Day Years Used Date Smoking Tobacco: Never Assessed Sex and Gender Information Value Date Recorded Sex Assigned at Not on file Legal Sex Male 7:48 PM EDT Gender Identity Not on file Sexual Orientation Not on file documented as of this encounter Plan of Treatment Upcoming Encounters Date Type Department Care Team (Late st Contact Info) Description 01/11/2025 2:40 PM EDT Office Visit [facility] Interventional Pain Medicine [address] [place] [address] Luciano Medina MD [address] [facility] [address] [place] [address] 01/30/2025 12:40 PM EST Office Visit [facility] [address] [place] [address] Dago Miller MD [address] [place] [address] documented as of this encounter Procedures Procedure Name Priority Date/Time Associated Diagnosis Comments XR OUTSIDE IMAGES 03/08/2013 12:59 PM EST documented in this encounter Results * XR OUTSIDE IMAGES (03/08/2013 12:59 PM EST) Anatomical Region Laterality Modality Radiographic Rosalva ging 03/08/2013 12:5 9 PM EST us External Provider IMG XR PROCEDURES Final Result documented in this encounter Visit Diagnoses Not on filedocumented in this encounter Care Teams Reagent Tender Helper Relationship Specialty Start Date End Date Sanchez Agosto MD [address] [place] [address] PCP - General 08/08/20 Dago Miller MD [address] [place] [address] Consulting Physician Neurology 09/24/20 documented as of this encounter
--- OUTSIDE RECORDS SUMMARY | 2024-11-22 14:31 | XMS_ITS | Encounter Summary ---
Author Organization Healthcare Address [address] [place] [address] Care Team Providers Care Business Unit Director Name Role Phone Sanchez Agosto MD Primary Care Provider [phone] Dago Miller MD Unavailable Encounter Details Date Type Department Care Team (Late st Contact Info) Description 05/16/2024 Orders Only External Location [address] [place] [address] Sanchez Agosto MD [address] [place] [address] Social History Tobacco Use Types Packs/Day Years Used Date Smoking Tobacco: Former Cigarettes 0 09/24/1999 - 2002 Smokeless Tobacco: Never Alcohol Use Standard Drinks/Week Comments Yes 3 [...] Description 01/11/2025 2:40 PM EDT Office Visit [facility] Interventional Pain Medicine [address] [place] [address] Luciano Medina MD [address] [facility] [address] [place] [address] 01/30/2025 12:40 PM EST Office Visit [place] [facility] [address] [place] [address] Dago Miller MD [address] [place] [address] documented as of this encounter Procedures Procedure Name Priority Date/Time Associated Diagnosis Comments XR OUTSIDE IMAGES 05/16/2024 3:50 PM EST documented in this encounter Results * XR OUTSIDE IMAGES (05/16/2024 3:50 PM EST) Anatomical Region Laterality Modality Radiographic Rosalva ging 05/16/2024 3:50 PM EST us Sanchez Agosto MD IMG XR PROCEDURES Final Resu lt documented in this encounter Visit Diagnoses Not on filedocumented in this encounter Additional Health Concerns Assessment Noted Time A fall risk assessment has been complete d for the patient 11/23/2023 2:59 PM EDT A Body Mass Index follow-up plan has been documented for the patient 11/23/2023 8:42 PM EDT documented as of this encounter Care Teams Business Unit Director Relationship Specialty Start Date End Date Sanchez Agosto MD [address] [place] [address] [address] [place] [address] PCP - General 08/08/20 Dago Miller MD [address] [place] [address] Consulting Physician Neurology 09/24/20 documented as of this encounter
--- OUTSIDE RECORDS SUMMARY | 2024-11-22 14:31 | XMS_ITS | Encounter Summary ---
Author Organization Healthcare Address [address] [place] [address] Care Team Providers Care Blue Split Trimmer Name Role Phone Sanchez Agosto MD Primary Care Provider [phone] Dago Miller MD Unavailable Encounter Details Date Type Department Care Team (Late st Contact Info) Description 10/29/2024 Orders Only External Location [address] [place] [phone] Provider, External Social History Tobacco Use Types [...] Description 01/11/2025 2:40 PM EDT Office Visit [facility] Interventional Pain Medicine [address] [place] [address] Luciano Medina MD [address] [facility] [address] [place] [address] 01/30/2025 12:40 PM EST Office Visit [facility] [address], 1[address] [place] [address] Dago Miller MD [address] [place] [address] documented as of this encounter Procedures Procedure Name Priority Date/Time Associated Diagnosis Comments POC ULTRASOUND 10/29/2024 documented in this encounter Results * POC Imaging (10/29/2024) Anatomical Region Laterality Modality Pelvis Other 10/29/2024 us External Provider IMG POINT OF CARE ULTRASOUND F inal Result documented in this encounter Visit Diagnoses Not on filedocumented in this encounter Additional Health Concerns Assessment Noted Time A fall risk assessment has been complete d for the patient 10/29/2024 10:19 AM EDT A Body Mass Index follow-up plan has been documented for the patient 10/29/2024 1:52 PM EDT documented as of this encounter Care Teams Blue Split Trimmer Relationship Specialty Start Date End Date Sanchez Agosto MD [address] [place] [address] PCP - General 08/08/20 Dago Miller MD [address] [place] [address] Consulting Physician Neurology 09/24/20 documented as of this encounter
--- OUTSIDE RECORDS SUMMARY | 2024-11-22 14:31 | XMS_ITS | Encounter Summary ---
Author Organization [facility] Address [address] [place] [address] Care Team Providers Care Endoscopic Technician Name Role Phone Sanchez Agosto MD Primary Care Provider [phone] Dago Miller MD Unavailable Encounter Details Date Type Department Care Team (Latest Contact Info) Description 11/20/2024 Travel Social History Tobacco Use Types Packs/Day Years [...] Description 01/11/2025 2:40 PM EDT Office Visit [facility] Interventional Pain Medicine [address] [place] [address] Luciano Medina MD [address] [facility] [address] [place] [address] 01/30/2025 12:40 PM EST Office Visit [facility] [address], [address] [place] [address] Dago Miller MD [address] [place] [address] documented as of this encounter Visit Diagnoses Not on filedocumented in this encounter Additional Health Concerns Assessment Noted Time A fall risk assessment has been complete d for the patient 11/20/2024 8:29 AM EDT A Body Mass Index follow-up plan has been documented for the patient 11/20/2024 9:41 AM EDT documented as of this encounter Care Teams Endoscopic Technician Relationship Specialty Start Date End Date Sanchez Agosto MD [address] [place] [address] PCP - General 08/08/20 Dago Miller MD [address] [place] [address] Consulting Physician Neurology 09/24/20 documented as of this encounter
--- OUTSIDE RECORDS SUMMARY | 2024-11-22 14:31 | XMS_ITS | Encounter Summary ---
Author Organization [facility] Address [address] 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) Sanchez Agosto MD [address] [place] [address] Phone: tel: fax: Luciano Medina MD [address] [facility] [address] [place] [address] Phone: tel: fax: Referral ID Status Reason Start Date Expiration Date V isits Requested Visits Authorized [id number] Closed Specialty Services Required 07/03/2024 01/02/2026 1 1 Encounter Details Date Type Department Care Team (Latest Contact Info) Description 07/03/2024 Community [facility] [address] [place] [address] Sanchez Agosto MD [address] [facility] [address] [place] [address] Facet degeneration of lumbar region (Primary Dx); Spinal stenosis, lumbar region with neurogenic claudication; 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) Social History Tobacco Use Types Packs/Day Years [...] Description 01/11/2025 2:40 PM EDT Office Visit [facility] Interventional Pain Medicine [address] [place] [address] Luciano Medina MD [address] [facility] [address] [place] [address] 01/30/2025 12:40 PM EST Office Visit [place] [facility] [address], [address] [place] [address] Dago Miller MD [address] [place] [address] Scheduled Referrals Name Type Priority Associated Diagnoses Orde r Schedule Ambulatory referral to Interventional Pain Outpatient Referral Routine Facet degeneration of lumbar region Spinal stenosis, lumbar region with neurogenic claudication 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) Ordered: 07/03/2024 documented as of this encounter Visit Diagnoses Diagnosis Facet degeneration of lumbar region- Primary Spinal stenosis, lumbar region with neurogenic claudication 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
--- OUTSIDE RECORDS SUMMARY | 2024-11-22 14:31 | XMS_ITS | Encounter Summary ---
Author Organization Healthcare Address [address] [place] [address] Care Team Providers Care Extractor And Wringer Operator Name Role Phone Sanchez Agosto MD Primary Care Provider [phone] Dago Miller MD Unavailable Encounter Details Date Type Department Care Team (Late st Contact Info) Description 08/06/2024 Orders Only External Location [address] [place] [address] Provider, External Social History Tobacco Use Types [...] Encounters Date Type Department Care Team (Late Contact Info) Description 01/11/2025 2:40 PM EDT Office Visit [facility] Interventional Pain Medicine [address] [place] [address] Luciano Medina MD [address] [facility] [address] [place] [address] 01/30/2025 12:40 PM EST Office Visit [facility] [address], [address] [place] [address] Dago Miller MD [address] [facility] [address] [place] [address] documented as of this encounter Procedures Procedure Name Priority Date/Time Associated Diagnosis Comments MR NEURO OUTSIDE IMAGES 08/06/2024 4:20 PM EDT documented in this encounter Results * MR NEURO OUTSIDE IMAGES (08/06/2024 4:20 PM EDT) Anatomical Region Laterality Modality Magnetic Resonan ce 08/06/2024 4:20 PM EDT us External Provider IMG MRI PROCEDURES Final Resul t documented in this encounter Visit Diagnoses Not on filedocumented in this encounter Additional Health Concerns Assessment Noted Time A fall risk assessment has been complete d for the patient 07/24/2024 10:10 AM EDT A Body Mass Index follow-up plan has been documented for the patient 07/24/2024 1:35 PM EDT documented as of this encounter Care Teams Extractor And Wringer Operator Relationship Specialty Start Date End Date Sanchez Agosto MD [address] [place] [address] PCP - General 08/08/20 Dago Miller MD [address] [place] [address] Consulting Physician Neurology 09/24/20 documented as of this encounter
--- OUTSIDE RECORDS SUMMARY | 2024-11-22 14:31 | XMS_ITS | Encounter Summary ---
Author Organization Healthcare Address [address] [place] [address] Care Team Providers Care Heat Plant Specialist Name Role Phone Sanchez Agosto MD Primary Care Provider [phone] Dago Miller MD Unavailable Encounter Details Date Type Department Care Team (Late st Contact Info) Description 05/16/2024 Orders Only External Location [address] [place] [address] Sanchez Agosto MD [address] [place] [address] Social History Tobacco Use Types Packs/Day Years [...] Description 01/11/2025 2:40 PM EDT Office Visit [facility] Interventional Pain Medicine [address] [place] [address] Luciano Medina MD [address] [facility] [address] [place] [address] 01/30/2025 12:40 PM EST Office Visit [place] [facility] [address], 1st [place] [address] Dago Miller MD [address] [place] [address] documented as of this encounter Procedures Procedure Name Priority Date/Time Associated Diagnosis Comments XR MSK OUTSIDE IMAGES 05/16/2024 3:50 PM EST documented in this encounter Results * XR MSK OUTSIDE IMAGES (05/16/2024 3:50 PM EST) Anatomical Region Laterality Modality Radiographic Rosalva ging 05/16/2024 3:50 PM EST Sanchez Agosto MD IMG XR PROCEDURES Final [...] documented as of this encounter Care Teams Heat Plant Specialist Relationship Specialty Start Date End Date Sanchez Agosto MD [address] [place] [address] PCP - General 08/08/20 Dago Miller MD [address] [place] [address] Consulting Physician Neurology 09/24/20 documented as of this encounter
--- OUTSIDE RECORDS SUMMARY | 2024-11-22 14:31 | XMS_ITS | Encounter Summary ---
Author Organization [facility] Address [address] [place] [address] Care Team Providers Care Stadium Attendant Name Role Phone Sanchez Agosto MD Primary Care Provider [phone] Dago Miller MD Unavailable Encounter Details Date Type Department Care Team (Latest Contact Info) Description 10/29/2024 Travel Social History Tobacco Use Types Packs/Day [...] Description 01/11/2025 2:40 PM EDT Office Visit [facility] Interventional Pain Medicine [address] [place] [address] Luciano Medina MD [address] [facility] [address] [place] [address] 01/30/2025 12:40 PM EST Office Visit [place] [facility] [address] 1[address] [place] [address] Dago Miller MD [address] [place] [address] documented as of this encounter Visit Diagnoses Not on filedocumented in this encounter Additional Health Concerns Assessment Noted Time A fall risk assessment has been complete d for the patient 10/29/2024 10:19 AM EDT A Body Mass Index follow-up plan has been documented for the patient 10/29/2024 1:52 PM EDT documented as of this encounter Care Teams Stadium Attendant Relationship Specialty Start Date End Date Sanchez Agosto MD [address] [place] [address] PCP - General 08/08/20 Dago Miller MD [address] [place] [address] Consulting Physician Neurology 09/24/20 documented as of this encounter
--- OUTSIDE RECORDS SUMMARY | 2024-11-22 14:31 | XMS_ITS | Encounter Summary ---
Author Organization [facility] Address [address] [place] [address] Care Team Providers Care Strategic Partner Development Manager Name Role Phone Sanchez Agosto MD Primary Care Provider [phone] Dago Miller MD Unavailable Encounter Details Date Type Department Care Team (Latest Contact Info) Description 10/15/2024 Travel Social History Tobacco Use Types Packs/Day [...] Description 01/11/2025 2:40 PM EDT Office Visit [facility] Interventional Pain Medicine [address] [place] [address] Luciano Medina MD [address] [facility] [address] [place] [address] 01/30/2025 12:40 PM EST Office Visit [place] [facility] [address], [address] [place] [address] Dago Miller MD [address] [place] [address] documented as of this encounter Visit Diagnoses Not on filedocumented in this encounter Additional Health Concerns Assessment Noted Time A fall risk assessment has been complete d for the patient 10/15/2024 10:27 AM EDT A Body Mass Index follow-up plan has been documented for the patient 10/15/2024 11:39 AM EDT documented as of this encounter Care Teams Strategic Partner Development Manager Relationship Specialty Start Date End Date Sanchez Agosto MD [address] [place] [address] PCP - General 08/08/20 Dago Miller MD [address] [place] [address] Consulting Physician Neurology 09/24/20 documented as of this encounter
--- OUTSIDE RECORDS SUMMARY | 2024-11-22 14:31 | XMS_ITS | Encounter Summary ---
Author Organization Healthcare Address [address] [place] [address] Care Team Providers Care Custom Framing Specialist Name Role Phone Sanchez Agosto MD Primary Care Provider [phone] Dago Miller MD Unavailable Encounter Details Date Type Department Care Team (Late st Contact Info) Description 03/08/2013 Orders Only External Location [address] [place] [address] Provider, External Social History Tobacco Use Types [...] 01/11/2025 2:40 PM EDT Office Visit [facility] Interventional Pain Medicine [address] [place] [address] Luciano Medina MD [address] [facility] [address] [place] [address] 01/30/2025 12:40 PM EST Office Visit [place] [facility] [address], [address]st [place] [address] Dago Miller MD [address] [place] [address] documented as of this encounter Procedures Procedure Name Priority Date/Time Associated Diagnosis Comments CT OUTSIDE IMAGES 03/08/2013 2:26 PM EST documented in this encounter Results * CT OUTSIDE IMAGES (03/08/2013 2:26 PM EST) Anatomical Region Laterality Modality Computed Tomogra phy 03/08/2013 2:26 PM EST us External Provider IMG CT PROCEDURES Final Result documented in this encounter Visit Diagnoses Not on filedocumented in this encounter Care Teams Custom Framing Specialist Relationship Specialty Start Date End Date Sanchez Agosto MD [address] [place] [address] PCP - General 08/08/20 Dago Miller MD [address] [place] [address] Consulting Physician Neurology 09/24/20 documented as of this encounter
--- OUTSIDE RECORDS SUMMARY | 2024-11-22 14:31 | XMS_ITS | Encounter Summary ---
Author Organization Healthcare Address [address] [place] [address] Care Team Providers Care Service Director Name Role Phone Sanchez Agosto MD Primary Care Provider [phone] Dago Miller MD Unavailable Encounter Details Date Type Department Care Team (Late st Contact Info) Description 04/16/2013 Orders Only External Location [address] [place] [phone] Provider, External Social History Tobacco Use Types [...] 2:40 PM EDT Office Visit [facility] Interventional Pain Medicine [address] [place] [address] Luciano Medina MD [address] [facility] [address] [place] [address] 01/30/2025 12:40 PM EST Office Visit [place] [facility] [address], [address] [place] [address] Dago Miller MD [address] [place] [address] documented as of this encounter Procedures Procedure Name Priority Date/Time Associated Diagnosis Comments CT OUTSIDE IMAGES 04/16/2013 1:11 PM EST documented in this encounter Results * CT OUTSIDE IMAGES (04/16/2013 1:11 PM EST) Anatomical Region Laterality Modality Computed Tomogra phy 04/16/2013 1:11 PM EST us External Provider IMG CT PROCEDURES Final Result documented in this encounter Visit Diagnoses Not on filedocumented in this encounter Care Teams Service Director Relationship Specialty Start Date End Date Sanchez gAosto MD [address] [place] [address] PCP - General 08/08/20 Dago Miller MD [address] [place] [address] Consulting Physician Neurology 09/24/20 documented as of this encounter
--- OUTSIDE RECORDS SUMMARY | 2024-11-22 14:31 | XMS_ITS | Encounter Summary ---
Author Organization Healthcare Address [address] [place] [address] Care Team Providers Care Booth Operator Name Role Phone Sanchez Agosto MD Primary Care Provider [phone] Dago Miller MD Unavailable Encounter Details Date Type Department Care Team (Late st Contact Info) Description 05/16/2024 Orders Only External Location [address] [place] [address] Sanchez Agosto MD [address] [place] [address] Social History Tobacco Use Types Packs/Day Years [...] Description 01/11/2025 2:40 PM EDT Office Visit [facility] Interventional Pain Medicine [address] [place] [address] Luciano Medina MD [address] [facility] [address] [place] [address] 01/30/2025 12:40 PM EST Office Visit [place] [facility] [address], 1[address] [place] [address] Dago Miller MD [address] [place] [address] documented as of this encounter [...] documented as of this encounter Care Teams Booth Operator Relationship Specialty Start Date End Date Sanchez Agosto MD [address] [place] [address] PCP - General 08/08/20 Dago Miller MD [address] [place] [address] Consulting Physician Neurology 09/24/20 documented as of this encounter
--- OUTSIDE RECORDS SUMMARY | 2024-11-22 14:31 | XMS_ITS | Encounter Summary ---
Author Organization Healthcare Address [address] [place] [address] Care Team Providers Care Commercial Credit Head Name Role Phone Sanchez Agosto MD Primary Care Provider [phone] Dago Miller MD Unavailable Encounter Details Date Type Department Care Team (Late st Contact Info) Description 10/15/2024 Orders Only External Location [address] [place] [phone] Provider, External Social History Tobacco Use Types [...] 01/11/2025 2:40 PM EDT Office Visit [facility] Interventional Pain Medicine [address] [place] [address] Luciano Medina MD [address] [facility] [address] [place] [address] 01/30/2025 12:40 PM EST Office Visit [place] [facility] [address], 1st [place] [address] Dago Miller MD [address] [place] [address] documented as of this encounter Procedures Procedure Name Priority Date/Time Associated Diagnosis Comments POC ULTRASOUND 10/15/2024 documented in this encounter Results * POC Imaging (10/15/2024) Anatomical Region Laterality Modality Pelvis Other 10/15/2024 us External Provider IMG POINT OF CARE [...] documented as of this encounter Care Teams Commercial Credit Head Relationship Specialty Start Date End Date Sanchez Agosto MD [address] [place] [address] PCP - General 08/08/20 Dago Miller MD [address] [place] [address] Consulting Physician Neurology 09/24/20 documented as of this encounter
--- OUTSIDE RECORDS SUMMARY | 2024-11-22 14:31 | XMS_ITS | Encounter Summary ---
Author Organization Healthcare Address [address] [place] [address] Care Team Providers Care Emergency Management Program Specialist Name Role Phone Sanchez Agosto MD Primary Care Provider [phone] Dago Miller MD Unavailable Encounter Details Date Type Department Care Team (Late st Contact Info) Description 11/20/2024 Orders Only External Location [address] [place] [phone] Provider, External Social History Tobacco Use Types [...] 01/11/2025 2:40 PM EDT Office Visit [facility] Interventional Pain Medicine [address] [place] [address] Luciano Medina MD [address] [facility] [address] [place] [address] 01/30/2025 12:40 PM EST Office Visit [place] [facility] [address], 1st [place] [address] Dago Miller MD [address] [place] [address] documented as of this encounter Procedures Procedure Name Priority Date/Time Associated Diagnosis Comments POC ULTRASOUND 11/20/2024 documented in this encounter Results * POC Imaging (11/20/2024) Anatomical Region Laterality Modality Pelvis Other 11/20/2024 [...] documented as of this encounter Care Teams Emergency Management Program Specialist Relationship Specialty Start Date End Date Sanchez Agosto MD [address] [place] [address] PCP - General 08/08/20 Dago Miller MD [address] [place] [address] Consulting Physician Neurology 09/24/20 documented as of this encounter
[2024-11-22 16:23] LABS: Amphetamine/Metha Screen,Urine Negative ng/ml (<1000)
[2024-11-22 16:24] LABS: Barbiturates Screen,Urine Negative ng/ml (<200); Benzodiazepines Screen,Urine Negative ng/ml (<200)
[2024-11-22 16:29] LABS: Methadone Screen,Urine Negative ng/ml (<300)
[2024-11-22 16:31] LABS: Opiate Screen,Urine Negative ng/ml (<300); Phencyclidine Screen,Urine Negative ng/ml (<25)
== END 2024-11-22 23:59 | disposition home or self-care (01) ==
LOC: LAB 14:27
PROVIDERS: PCP Internal Medicine Adolescent Medicine; Visit Provider Nurse Practitioner Psychiatric/Mental Health
DX: Z51.81 Encounter for therapeutic drug level monitoring (principal)
CPT/HCPCS: 80307